=== PATIENT | female | born 1945 | race Caucasian/White ===

== ENCOUNTER → 2018-05-15 | Outpatient (CLI) | payer MEDICARE, BC ==
[~2018-05-15] VITALS: Ht 162.6 cm; Wt 76.7 kg
[~2018-05-15] MED LIST: ASP81TEC PO; CATHETER FLUSH 10 ML SYR IV PRN; CEPH500C PO; CYCL10TA9 PO; EST.625T PO; HYDR1TAB PO; LISI10TA PO; MELO-195 PO; fentaNYL INJECTION 100 MCG/2 ML AMP ONE
[2018-05-15 09:40] VITALS: BP 200/85
--- NOTE | 2018-05-15 15:16 | STRESS TEST ---
DATE OF SERVICE: 05/15/2018 AN EXERCISE MYOVIEW STRESS TEST REPORT REFERRING PHYSICIAN: Dr. Dennis Boyle. Baseline heart rate is 72. Baseline blood pressure is 143/78. Baseline EKG is sinus rhythm with no ischemic changes. SUMMARY: The patient was injected with 9.1 mCi of technetium-99 Myoview and the resting images were obtained. Then, the patient started exercising with a baseline heart rate, blood pressure and EKG mentioned above. The patient was able to exercise for 4 minutes on standard Khurram protocol. With peak exercise level, EKG was showing minimal nondiagnostic changes. During recovery, heart rate and blood pressure returned to baseline. EKG returned to baseline. The resting and stress images were reviewed and compared in the short axis, horizontal long axis and vertical long axis views. Review of the images showed good radiotracer uptake with no significant ischemia or infarction on SPECT images. SSS is 2, SDS 2 and TID value 0.86. On the gated images, the left ventricle appeared to be small in size with good contractility. Calculated ejection fraction is 85%. CONCLUSION: 1. Fair exercise tolerance, a total of 4 minutes on standard Khurram protocol, total of 5.8 METS achieving 93% of maximum expected heart rate. 2. Appropriate heart rate and blood pressure response to exercise returned to baseline during recovery. 3. Minimal nondiagnostic EKG changes with exercise returned to baseline during recovery. 4. No ischemia or infarction on SPECT images. 5. Normal small left ventricular size with normal contractility. Calculated ejection fraction is 85%. Job ID: [id number] DocumentID: [id number] Dictated Date: 05/15/2018 14:48:48 Buffer Operator Date: 05/15/2018 15:15:50 Dictated By: ISAIAH OCAMPO MD
== END ==
LOC: CARD 07:33
PROVIDERS: ATTEND Internal Medicine Cardiovascular Disease
DX: I10 Essential (primary) hypertension (principal); R94.31 Abnormal electrocardiogram [ECG] [EKG]; Z82.49 Family history of ischemic heart disease and other diseases of the circulatory system
CPT/HCPCS: 78452; 93017

== ENCOUNTER → 2019-01-23 | Outpatient (CLI) | payer MEDICARE, BC ==
[~2019-01-23] MED LIST changes: -CATHETER FLUSH 10 ML SYR IV PRN; -fentaNYL INJECTION 100 MCG/2 ML AMP ONE
--- NOTE | 2019-01-23 12:21 | Diagnostic Imaging Report ---
CLINICAL HISTORY: Sharp upper back pain. History of spinal fusion. COMPARISON: None. TECHNIQUE: Three views of the thoracic spine. FINDINGS: No evidence of acute fracture or dislocation is seen in the thoracic spine. Vertebral body heights are well-maintained. No focal osseous lesions. There is anatomic alignment of the thoracic spine. Mild degenerative changes are seen in the thoracic spine with marginal osteophyte formation and facet hypertrophy. Anterior cervical spinal fusion is noted. Included views of the chest demonstrate no focal consolidations. Postcholecystectomy clips are seen in the right upper quadrant. IMPRESSION: No acute fracture or dislocation in the thoracic spine. Dictated by: Dictated on workstation # [id number]
== END ==
LOC: RAD FS 11:59
PROVIDERS: ATTEND Nurse Practitioner Family
DX: M54.6 Pain in thoracic spine (principal); Z98.1 Arthrodesis status
CPT/HCPCS: 72070

== ENCOUNTER → 2019-06-20 | Outpatient (CLI) | payer MEDICARE, BC | LOC: CARD 10:18 | PROVIDERS: ATTEND Physician Assistant | DX: I07.1 Rheumatic tricuspid insufficiency (principal); I10 Essential (primary) hypertension; E78.2 Mixed hyperlipidemia; Z82.49 Family history of ischemic heart disease and other diseases of the circulatory system | CPT/HCPCS: 93306 ==

== ENCOUNTER → 2019-09-08 | Outpatient (CLI) | payer MEDICARE, BC ==
--- NOTE | 2019-09-08 10:02 | Diagnostic Imaging Report ---
EXAMINATION: Cervical spine radiographs, 3 views, 4 images. COMPARISON: None. HISTORY: 74-year-old female, neck pain. No known injury. FINDINGS: There is anterior cervical spine fusion hardware spanning C4-C6. The hardware appears intact. There is severe disc height loss at C6-C7 with osteophyte formation. There is no prominent prevertebral soft tissue swelling. The lateral masses of C1 are normally aligned relative to C2. Additional alignment of the cervical spine is grossly unremarkable. IMPRESSION: 1. Severe disc degenerative changes at C6-C7. 2. Anterior cervical spinal fusion hardware spanning C4-C6. Dictated by: Dictated on workstation # [id number]
== END ==
LOC: RAD FS 09:13
PROVIDERS: ATTEND Nurse Practitioner Family
DX: M50.323 Other cervical disc degeneration at C6-C7 level (principal); Z98.1 Arthrodesis status
CPT/HCPCS: 72040

== ENCOUNTER → 2019-10-14 | Outpatient (CLI) | payer MEDICARE, BC ==
--- NOTE | 2019-10-14 09:26 | Diagnostic Imaging Report ---
PROCEDURE: MR imaging cervical spine without contrast. TECHNIQUE: Multiplanar, multisequence MR imaging of the cervical spine was performed without contrast. INDICATION: Increased neck pain. COMPARISON: Radiographs dated 09/08/2019 FINDINGS: Postsurgical changes of previous anterior fusion of C4-C6 are identified. Evaluation integrity of the hardware is suboptimal given MR modality metallic susceptibility artifact. Evaluation static alignment shows mild grade 1 anterolisthesis at C3-C4. Slight grade 1 retrolisthesis is also noted at C6-C7. There is no evidence of jumped facets. Vertebral body heights are maintained. There is no evidence of acute fracture. Marrow signal is unremarkable. There is multilevel intervertebral disc height loss as well as multilevel anterior posterior disc bulging. This does result in multilevel spinal canal narrowing, greatest at the C3-C4 level. There is however no evidence of cord edema. Cervical cord is normal in course and caliber. No abnormal intrathecal filling defects are identified. Included portions of posterior fossa are unremarkable. Pre and paravertebral soft tissue structures are within normal limits as well. Axial images demonstrate the following: C2-C3: There is bilateral uncovertebral hypertrophy with slight posterior disc bulge. There is however no significant spinal canal or neuroforaminal stenosis. C3-C4: There is bilateral uncal vertebral hypertrophy with broad-based posterior disc bulge and ligamentum flavum laxity. As a result, there is moderate spinal canal stenosis and moderate to severe stenosis of the right neuroforamen. There is also mild narrowing on the left. C4-C5: Postsurgical changes as above. No significant spinal canal or neuroforaminal stenosis. C5-C6: Postsurgical changes as above. No significant spinal canal or neuroforaminal stenosis. C6-C7: There is bilateral uncovertebral hypertrophy and slight broad-based posterior disc bulge. As a result, there is mild narrowing of spinal canal and bilateral neural foramen. C7-T1: There is bilateral facet arthropathy. As a result, there is mild narrowing of the bilateral neural foramen. There is no large disc bulge or focal protrusion. Additionally, there is no significant spinal canal stenosis. IMPRESSION: 1. Multilevel degenerative changes of the cervical spine, greatest at the C2-C3 level. 2. Postsurgical changes of previous anterior fusion of C4-C6. Again, evaluation of the hardware integrity is suboptimal given MR modality metallic susceptibility artifact. Static alignment at the fused levels however is maintained. 3. No acute fracture or dislocation. Dictated by: Dictated on workstation # [id number]
== END ==
LOC: RAD 07:28
PROVIDERS: ATTEND Nurse Practitioner Family
DX: M47.812 Spondylosis without myelopathy or radiculopathy, cervical region (principal); Z98.1 Arthrodesis status
CPT/HCPCS: 72141

== ENCOUNTER → 2020-08-11 | Outpatient (CLI) | payer MEDICARE, BC | LOC: CARD 12:27 | PROVIDERS: ATTEND Internal Medicine Cardiovascular Disease | DX: I10 Essential (primary) hypertension (principal) | CPT/HCPCS: 93306 ==

== ENCOUNTER 2020-08-20 11:54 | Inpatient (IN) | payer MEDICARE, BC ==
[~2020-08-20] VITALS: Ht 162.6 cm; Wt 84.3 kg
[2020-08-20 12:07] LABS: BASOPHILS # (AUTO) 0.1 10^3/uL (0.0-0.1); BASOPHILS % (AUTO) 1 % (0-10); EOSINOPHILS # (AUTO) 0.1 10^3/uL (0.0-0.3); EOSINOPHILS % (AUTO) 2 % (0-10); HEMATOCRIT 42 % (35-52); HEMOGLOBIN 13.9 g/dL (11.5-16.0); LYMPHOCYTES # (AUTO) 1.7 10^3/uL (1.0-4.0); LYMPHOCYTES % (AUTO) 27 % (12-44); MEAN CORPUSCULAR HEMOGLOBIN 30 pg (25-34); MEAN CORPUSCULAR HGB CONC 33 g/dL (32-36); MEAN CORPUSCULAR VOLUME 90 fL (80-99); MEAN PLATELET VOLUME 11.8 fL (9.0-12.2); MONOCYTES # (AUTO) 0.3 10^3/uL (0.0-1.0); MONOCYTES % (AUTO) 5 % (0-12); NEUTROPHILS # (AUTO) 4.3 10^3/uL (1.8-7.8); NEUTROPHILS % (AUTO) 66 % (42-75); PLATELET COUNT 152 10^3/uL (130-400); WHITE BLOOD COUNT 6.5 10^3/uL (4.3-11.0)
--- NOTE | 2020-08-20 12:14 | ED Neurological Problem ---
General Stated Complaint: STROKE Source: patient Exam Limitations: no limitations History of Present Illness Date Seen by Provider: Aug 20, 2020 Time Seen by Provider: 12:00 Initial Comments To ER by EMS with reports of strokelike symptoms. She went to get a pizza and was driving home. Her left hand fell off the steering wheel and has no strength and she has no control over it. This began at 11:30 AM this morning. She is on aspirin only. No history of TIA or stroke. Non-smoker. Does have hypertension. No other symptoms such as vision changes difficulty speaking. No leg troubles. She did receive a Covid injection in the left arm 7 days ago. She has had no troubles until suddenly today at 1130. Timing/Duration: 1/2 hour Severity: moderate Associated Symptoms: paresthesia Allergies and Home Medications Allergies Coded Allergies: No Known Drug Allergies (Unverified , 11/28/10) Home Medications Aspirin 81 Mg Tabec, 81 MG PO DAILY, (Reported) Cyclobenzaprine Hcl 10 Mg Tablet, 1 EACH PO Q8HR PRN, (Reported) Estrogens,Conjugated 0.625 Mg Tablet, 1 TAB PO DAILY, (Reported) Lisinopril 10 Mg Tablet, 1 EACH PO DAILY, (Reported) Meloxicam 15 Mg Tablet, 1 EACH PO DAILY, (Reported) Patient Home Medication List Home Medication List Reviewed: Yes Review of Systems Review of Systems Constitutional: see HPI Eyes: No Symptoms Reported Ears, Nose, Mouth, Throat: no symptoms reported Respiratory: no symptoms reported Cardiovascular: no symptoms reported Genitourinary: no symptoms reported Musculoskeletal: no symptoms reported Skin: no symptoms reported Psychiatric/Neurological: No Symptoms Reported Past Ynmzjce-Vqnueh-Twgnfi Hx Past Medical History Reproductive Disorders: No Physical Exam Vital Signs Vital Signs - First Documented 08/20/20 11:55 Temp 36.7 Pulse 94 Resp 15 B/P (MAP) 170/89 (116) Pulse Ox 96 Capillary Refill : Height, Weight, BMI Height: 5'4.00" Weight: 169lbs. 0.0oz. 76.794401an; 29.0 BMI Method: General Appearance: WD/WN, no apparent distress, other (Alert and oriented GCS 15 talkative very pleasant blood pressure 170/90. ) Respiratory: lungs clear, normal breath sounds, no respiratory distress, no accessory muscle use Cardiovascular: regular rate, rhythm, no murmur Gastrointestinal: normal bowel sounds, non tender, soft Extremities: normal range of motion, non-tender Neurologic/Psychiatric: alert, normal mood/affect, oriented x 3 Crainal Nerves: normal hearing, normal speech, PERRL Coordination/Gait: ABN nose to finger (L) Motor/Sensory: pronator drift (L) Skin: normal color, warm/dry Stroke Onset of Symptoms Date of Onset of Symptoms: Aug 20, 2020 Time of Symptom Onset: 11:30 Onset of Symptoms: Yes Symptoms onset unknown: Yes NIH Stroke Scale Assessment Select: Initial Level of Consciousness: 0=Alert (0), Level of Consciousness- Questions: 0=Answers both month/age (0), LOC Commands: 0=Performs both tasks (0), Gaze: Normal (0), Visual Styles: 0=No visual loss (0), Facial Movement (Facial Paresis): 0=Normal symmetrical mnt (0), Motor Function-Arms Right: 0=No drift (0), Motor Function-Arms Left: 2=Some effort/gravity (2), Motor Function-Legs Right: 0=No drift (0), Motor Function-Legs Left: 0=No drift (0), Limb Ataxia: 0=Absent (0), Sensory: 0=Normal:no loss (0), Best Language: 0=No aphasia (0), Dysarthria: 0=Normal (0), Extinction & Inattention: 0=No abnormality (0), Total: 2 Stroke Thrombolytic Exclusion Age 18 or Over: Yes Acute intenal hemorrhage: No History of CVA: No Uncontrolled Coagulation Defec: No Intracranial Hemorrhage: No Severe Hypertension: No GI or Bleed: No Subarachnoid Hemorrhage: No Intracranial Neoplasm/Aneurysm: No Oral Anticoagulants: No Surgery or Trauma: No Puncture of Non-Compressible V: No Recent CPR: No Diabetic Hemorrhagic Retinopat: No Organ Biopsy: No Recent Obstetric Delivery: No Glucose: No Significant Hepatic Dysfunctio: No NIH Stoke Scale >22: No Bacterial Endocarditis: No Pericarditis: No Improving Symptoms: No Platelets: No TPA Contraindication: No Progress/Results/Core Measures Results/Orders Lab Results Laboratory Tests Test 08/20/20 12:00 08/20/20 12:01 08/20/20 12:30 08/20/20 12:31 Range/Units Glucometer 102 89 70-110 MG/DL White Blood Count 6.5 4.3-11.0 10^3/uL Red Blood Count 4.65 3.80-5.11 10^6/uL Hemoglobin 13.9 11.5-16.0 g/dL Hematocrit 42 35-52 % Mean Corpuscular Volume 90 80-99 fL Mean Corpuscular Hemoglobin 30 25-34 pg Mean Corpuscular Hemoglobin Concent 33 32-36 g/dL Red Cell Distribution Width 13.0 10.0-14.5 % Platelet Count 152 130-400 10^3/uL Mean Platelet Volume 11.8 9.0-12.2 fL Immature Granulocyte % (Auto) 0 % Neutrophils (%) (Auto) 66 42-75 % Lymphocytes (%) (Auto) 27 12-44 % Monocytes (%) (Auto) 5 0-12 % Eosinophils (%) (Auto) 2 0-10 % Basophils (%) (Auto) 1 0-10 % Neutrophils # (Auto) 4.3 1.8-7.8 10^3/uL Lymphocytes # (Auto) 1.7 1.0-4.0 10^3/uL Monocytes # (Auto) 0.3 0.0-1.0 10^3/uL Eosinophils # (Auto) 0.1 0.0-0.3 10^3/uL Basophils # (Auto) 0.1 0.0-0.1 10^3/uL Immature Granulocyte # (Auto) 0.0 0.0-0.1 10^3/uL Sodium Level 140 135-145 MMOL/L Potassium Level 4.6 3.6-5.0 MMOL/L Chloride Level 106 98-107 MMOL/L Carbon Dioxide Level 21 21-32 MMOL/L Anion Gap 13 5-14 MMOL/L Blood Urea Nitrogen 17 7-18 MG/DL Creatinine 1.12 0.60-1.30 MG/DL Estimat Glomerular Filtration Rate 48 BUN/Creatinine Ratio 15 Glucose Level 96 70-105 MG/DL Calcium Level 9.1 8.5-10.1 MG/DL Corrected Calcium 8.9 8.5-10.1 MG/DL Total Bilirubin 0.3 0.1-1.0 MG/DL Aspartate Amino Transf (AST/SGOT) 30 5-34 U/L Alanine Aminotransferase (ALT/SGPT) 18 0-55 U/L Alkaline Phosphatase 85 40-136 U/L Troponin I < 0.028 <0.028 NG/ML Total Protein 7.6 6.4-8.2 GM/DL Albumin 4.3 3.2-4.5 GM/DL Prothrombin Time 13.1 12.2-14.7 SEC INR Comment 1.0 0.8-1.4 Activated Partial Thromboplast Time 27 24-35 SEC D-Dimer 5.10 H 0.00-0.49 UG/ML Test 08/20/20 12:41 Range/Units Urine Color YELLOW Urine Clarity CLEAR Urine pH 6.0 5-9 Urine Specific [place] 1.010 L 1.016-1.022 Urine Protein NEGATIVE NEGATIVE Urine Glucose (UA) NEGATIVE NEGATIVE Urine Ketones NEGATIVE NEGATIVE Urine Nitrite NEGATIVE NEGATIVE Urine Bilirubin NEGATIVE NEGATIVE Urine Urobilinogen 0.2 < = 1.0 MG/DL Urine Leukocyte Esterase 1+ H NEGATIVE Urine RBC (Auto) NEGATIVE NEGATIVE Urine RBC NONE /HPF Urine WBC 5-10 H /HPF Urine Squamous Epithelial Cells 10-25 H /HPF Urine Crystals NONE /LPF Urine Bacteria TRACE /HPF Urine Casts NONE /LPF Urine Mucus NEGATIVE /LPF Urine Culture Indicated YES My Orders Orders - ABAD FLORES HYDROGRAPHER Ct Angio Head/Neck (08/20/20 12:03) Iohexol Injection (Omnipaque 350 Mg/Ml 1 (08/20/20 12:30) Received Contrast (Hold Metformin- Contr (08/20/20 12:30) Sodium Chloride Flush (Catheter Flush Sy (08/20/20 12:30) Ns (Ivpb) (Sodium Chloride 0.9% Ivpb Bag (08/20/20 12:30) Mri Brain W/O Contrast (08/20/20 12:55) Alteplase (Activase) (Activase Injection (08/20/20 13:51) Medications Given in ED Current Medications Medications Dose Ordered Sig/Raheem Route Start Time Stop Time Status Last Admin Dose Admin Iohexol 75 ml ONCE ONCE IV 08/20/20 12:30 08/20/20 12:31 DC 08/20/20 12:18 75 ML Sodium Chloride 10 ml NEEDED PRN IV 08/20/20 12:30 08/20/20 12:18 10 ML Sodium Chloride 100 ml ONCE ONCE IV 08/20/20 12:30 08/20/20 12:31 DC 08/20/20 12:18 80 ML Vital Signs/I&O 08/20/20 11:55 Temp 36.7 Pulse 94 Resp 15 B/P (MAP) 170/89 (116) Pulse Ox 96 Diagnostic Imaging Diagonstic Imaging: CT Comments NAME: ALEJANDRA MOLINA [facility] REC#: [id number] PT STATUS: REG ER : 1945 PHYSICIAN: ABAD FLORES APRN ADMIT DATE: 08/20/20/ER Draft Date of Exam:08/20/20 MRI BRAIN W/O CONTRAST PROCEDURE: MR imaging of the brain without contrast. TECHNIQUE: Multiplanar, multisequence MR imaging of the brain was performed without contrast. INDICATION: Left arm weakness, symptoms began 2 hours ago CORRELATED with CT angiogram head and neck earlier this same date There is a tiny curvilinear focus of abnormal cortical diffusion restriction in the high posterior right frontal lobe along the motor strip. The very small infarct measures 1 cm in maximal dimension. It exerts no mass effect and has no hemorrhagic component. No other foci of abnormal or suspicious diffusion restriction are found. Cerebral cortical volume unremarkable. No findings of elevated intracranial pressures. There is no hydrocephalus. The midline structures nondisplaced. There are no acute or abnormal extra-axial fluid collections. IMPRESSION: Exam confirms an acute to subacute ischemic infarct along the posterior right frontal lobe at the motor strip near the vertex measuring 1 cm maximal with no hemorrhagic component nor mass effect. No other significant finding. Dictated on workstation # [id number] Dict: 08/20/20 1328 Trans: 08/20/20 [address] [facility] [id number] Interpreted by: ELISA MELO Electronically signed by: NAME: ALEJANDRA MOLINA [facility] REC#: [id number] PT STATUS: REG ER : 1945 PHYSICIAN: ABAD FLORES APRN ADMIT DATE: 08/20/20/ER Draft Date of Exam:08/20/20 MRI BRAIN W/O CONTRAST PROCEDURE: MR imaging of the brain without contrast. TECHNIQUE: Multiplanar, multisequence MR imaging of the brain was performed without contrast. INDICATION: Left arm weakness, symptoms began 2 hours ago CORRELATED with CT angiogram head and neck earlier this same date There is a tiny curvilinear focus of abnormal cortical diffusion restriction in the high posterior right frontal lobe along the motor strip. The very small infarct measures 1 cm in maximal dimension. It exerts no mass effect and has no hemorrhagic component. No other foci of abnormal or suspicious diffusion restriction are found. Cerebral cortical volume unremarkable. No findings of elevated intracranial pressures. There is no hydrocephalus. The midline structures nondisplaced. There are no acute or abnormal extra-axial fluid collections. IMPRESSION: Exam confirms an acute to subacute ischemic infarct along the posterior right frontal lobe at the motor strip near the vertex measuring 1 cm maximal with no hemorrhagic component nor mass effect. No other significant finding. Dictated on workstation # [id number] Dict: 08/20/20 1328 Trans: 08/20/20 [address] [facility] [id number] Interpreted by: ELISA MELO Electronically signed by: Departure Communication (Admissions) [id number] discussed the case with Dr. Benson from neurology at . She recommends discussing with the patient what she would like to do. We could give TPA and potentially resolve her symptoms or potentially make them worse. Dr. Solares is here and has seen the patient, we are still well within the window of giving TPA. Were going to go ahead and get a MRI of the brain. She also has a bad cervical spine with previous cervical spine surgery. She tells Dr. Solares that she was actually having some troubles with her neck last night. 1359-MRI confirms stroke. Symptoms remain essentially unchanged with drift and ataxia of the left arm. Discussed with patient whether she could accept this permanently or if she wanted to proceed with TPA administration while accepting the risks of bleeding or transformation of ischemic stroke into hemorrhagic stroke. 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 Though she is right-hand dominant she needs to be able to use her left hand to care for him and would like to proceed with TPA administration accepting of the risks. Impression Primary Impression: Cerebrovascular accident due to cerebral artery occlusion Disposition: ADMITTED INPATIENT Condition: Stable Admissions Decision to Admit Reason: Admit from ER (General) Decision to Admit/Date: Aug 20, 2020 Time/Decision to Admit Time: 13:56 Departure-Patient Inst. Referrals: [facility] (PCP) Primary Care Physician RADHA VAN APRN (Family) Primary Care Physician BAAD FLORES APRN Aug 20, 2020 12:14
[2020-08-20 12:23] LABS: ALBUMIN 4.3 GM/DL (3.2-4.5); CHLORIDE 106 MMOL/L (98-107); SODIUM 140 MMOL/L (135-145)
[2020-08-20 12:24] LABS: CALCIUM 9.1 MG/DL (8.5-10.1)
[2020-08-20 12:25] LABS: GLUCOSE 96 MG/DL (70-105); TOTAL PROTEIN 7.6 GM/DL (6.4-8.2)
[2020-08-20 12:26] LABS: CARBON DIOXIDE 21 MMOL/L (21-32)
[2020-08-20 12:27] LABS: BILIRUBIN,TOTAL 0.3 MG/DL (0.1-1.0); POTASSIUM 4.6 MMOL/L (3.6-5.0)
--- NOTE | 2020-08-20 12:27 | Diagnostic Imaging Report ---
INDICATION: Stroke. Frontal chest obtained at 12:19 p.m. There is no previous study for comparison. Heart and mediastinal silhouette are normal in appearance. The lungs are clear. There is no pneumothorax or pleural fluid. IMPRESSION: Negative chest. Dictated by: Dictated on workstation # [id number]
[2020-08-20 12:29] LABS: ALKALINE PHOSPHATASE 85 U/L (40-136); CREATININE SERUM 1.12 MG/DL (0.60-1.30); GFR ESTIMATED 48
[2020-08-20 12:30] LABS: BUN/CREATININE RATIO 15
[2020-08-20] MEDS ORDERED: NS 100 ML (IVPB) BAG IV ONE (12:30)
[2020-08-20] MEDS ORDERED: CATHETER FLUSH 10 ML SYR IV PRN ×2 (12:30→15:45)
[2020-08-20] MEDS ORDERED: IOHEXOL 350 MG/ML 100 ML (OMNIPAQUE 350) VIAL IV ONE (12:30)
[2020-08-20] MEDS ORDERED: HOLD METFORMIN - RECEIVED CONTRAST 20 ML VIAL IV SCH (12:30)
[2020-08-20 12:32] LABS: ALANINE AMINOTRANSFERASE 18 U/L (0-55)
--- NOTE | 2020-08-20 12:39 | Diagnostic Imaging Report ---
INDICATION: Stroke, left arm weakness. TECHNIQUE: Contiguous noncontrast images were obtained from the skull base through the vertex. After intravenous contrast administration, helical CT angiography of the neck was performed. Source data was reformatted into 3D MIP projections. Delayed post contrast acquisition was also obtained. Auto Exposure Controls were utilized during the CT exam to meet ALARA standards for radiation dose reduction. Precontrast brain CT shows no extra-axial fluid collection. No intracranial hemorrhage. No intracranial mass or mass effect. No midline shift. The ventricles are normal in size and position. There were no focal parenchymal abnormalities in the brain. Calvarial windows are normal. CTA neck findings: The thoracic aortic arch is patent and normal in caliber and appearance. The great vessel origins are patent and without stenosis. The common carotid arteries, carotid bifurcations, internal carotid arteries and external carotids are patent. There is moderate plaquing in the left distal common carotid artery and proximal internal carotid, with around 30% diameter reduction. Both vertebrals are patent and are codominant and without stenosis. There is evidence of previous anterior cervical spine fusion from C4 through C6. There is prominent facet degenerative change throughout the cervical spine. CTA head findings: The distal internal carotid arteries, anterior cerebral arteries, and middle cerebral arteries and their branches appear patent and without stenosis or occlusion. The distal vertebral arteries and basilar artery and posterior cerebral arteries are patent. There is patency of the dural venous sinuses. Delayed images demonstrate no enhancing lesions. IMPRESSION: Noncontrast brain CT was unremarkable. CTA neck showed no evidence of significant carotid stenosis or vertebral stenosis or occlusion. There is mild plaquing in the left distal common carotid artery and internal carotid origin with around 30% diameter reduction. There is extensive degenerative and postoperative change in the cervical spine. CTA head shows no major vessel stenosis or occlusion or aneurysmal disease. There was patency of the dural venous sinuses. Dictated by: Dictated on workstation # [id number]
[2020-08-20 12:48] LABS: BILIRUBIN,URINE NEGATIVE (NEGATIVE); CLARITY,URINE CLEAR; COLOR,URINE YELLOW; GLUCOSE, URINE (UA) NEGATIVE (NEGATIVE); KETONES,URINE NEGATIVE (NEGATIVE); LEUKOCYTE ESTERASE ,URINE 1+ (NEGATIVE); NITRITE,URINE NEGATIVE (NEGATIVE); PROTEIN,URINE NEGATIVE (NEGATIVE)
[2020-08-20 12:55] LABS: BACTERIA,URINE TRACE /HPF
[2020-08-20 13:08] LABS: FIBRIN DEGRADATION PRODUCTS 5.1 UG/ML (0.00-0.49); PROTHROMBIN TIME PATIENT 13.1 SEC (12.2-14.7)
--- NOTE | 2020-08-20 13:46 | Diagnostic Imaging Report ---
PROCEDURE: MR imaging of the brain without contrast. TECHNIQUE: Multiplanar, multisequence MR imaging of the brain was performed without contrast. INDICATION: Left arm weakness, symptoms began 2 hours ago CORRELATED with CT angiogram head and neck earlier this same date There is a tiny curvilinear focus of abnormal cortical diffusion restriction in the high posterior right frontal lobe along the motor strip. The very small infarct measures 1 cm in maximal dimension. It exerts no mass effect and has no hemorrhagic component. No other foci of abnormal or suspicious diffusion restriction are found. Cerebral cortical volume unremarkable. No findings of elevated intracranial pressures. There is no hydrocephalus. The midline structures nondisplaced. There are no acute or abnormal extra-axial fluid collections. IMPRESSION: Exam confirms an acute to subacute ischemic infarct along the posterior right frontal lobe at the motor strip near the vertex measuring 1 cm maximal with no hemorrhagic component nor mass effect. No other significant finding. Dictated by: Dictated on workstation # [id number]
[2020-08-20] MEDS ORDERED: ALTEPLASE 100 MG/VIAL (ACTIVASE) ONE (13:51)
[2020-08-20] MEDS ORDERED: LACTATED RINGERS 1,000 ML IV ONE (15:28)
[2020-08-20] MEDS: LACTATED RINGERS 1,000 ML IV SCH (15:47)
[2020-08-20] MEDS ORDERED: LABETALOL HCL 20 MG/4 ML VIAL IV PRN (16:30)
--- NOTE | 2020-08-20 16:51 | History & Physical-Hospitalist ---
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 No other symptoms. Her strength was 2/[address] scan obtained stat and CVA protocol followed. Conferred with Faheem Wen at the bedside and we decided to confirm suspicion of CVA with stat MRI and if no CVA would perform MRI cervical spine due to neck pain last night and suspicious for herniated disk with impingement left upper extremity. tPA discussed with patient. MRI confirmed CVA right frontal lobe in motor area of left upper extremity. tPA given and patient was m justyna to ICU. Cardiology consulted. Lipid panel ordered along with ECHO. 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 PT OT consulted with IRF. Source: patient, RN/MD Exam Limitations: no limitations Date Seen 08/20/20 Time Seen by a Provider: 13:00 Attending Physician Nivia Lakhani DO [facility] Referring Physician Date of Admission Aug 20, 2020 at 14:06 Home Medications & Allergies Home Medications Reviewed patient Home Medication Reconciliation performed by pharmacy medication reconciliations repair technician and/or nursing. Patients Allergies have been reviewed. Allergies Allergies Coded Allergies No Known Drug Allergies (Unverified11/28/10) Past Rjyafvk-Kodzve-Mzsecv Hx Past Med/Social Hx: Reviewed Nursing Past Med/Soc Hx, Reviewed and Corrections made Patient Social History Marrital Status: Employed/Student: retired Alcohol Use: Denies Use Recreational Drug Use: No Smoking Status: Never a Smoker Recent Foreign Travel: No Contact w/other who traveled: No Recent Hopitalizations: No Recent Infectious Disease Expo: No Immunizations Up To Date Date of Influenza Vaccine: Aug 20, 2020 Seasonal Allergies Seasonal Allergies: No Past Medical History Surgeries: Gallbladder, Hysterectomy, Orthopedic Reproductive: No Sexually Transmitted Disease: No Hysterectomy Musculoskeletal: Degenerate Disk Disease, Chronic Back Pain History of Blood Disorders: No Review of Systems Constitutional: see HPI Psychiatric/Neurological: Weakness (left arm) Physical Exam Physical Exam Vital Signs Vital Signs - First Documented 08/20/20 08/20/20 11:55 15:15 Temp 36.7 Pulse 94 Resp 15 B/P (MAP) 170/89 (116) Pulse Ox 96 O2 Delivery Room Air Capillary Refill : Less Than 3 Seconds Height, Weight, BMI Height: 5'4.00" Weight: 169lbs. 0.0oz. 76.088187aj; 29.69 BMI Method: General Appearance: No Apparent Distress Eyes: Right Eye Normal Inspection, Right Eye PERRL HEENT: PERRL/EOMI, TMs Normal, Normal ENT Inspection, Pharynx Normal, Moist Mucous Membranes Neck: Full Range of Motion, Normal Inspection, Non Tender Respiratory: Chest Non Tender, Lungs Clear, Normal Breath Sounds, No Accessory Muscle Use, No Respiratory Distress Cardiovascular: Regular Rate, Rhythm, No Edema, No Gallop, No JVD, No Murmur, Normal Peripheral Pulses Gastrointestinal: Normal Bowel Sounds, No Organomegaly, No Pulsatile Mass, Non Tender, Soft Back: Normal Inspection, No CVA Tenderness, No Vertebral Tenderness Extremity: Normal Capillary Refill, Normal Inspection, Normal Range of Motion, Non Tender, No Calf Tenderness, No Pedal Edema Neurologic/Psychiatric: Alert, Oriented x3, No Motor/Sensory Deficits, Normal Mood/Affect, Motor Weakness (left arm 3/5 hand 2/5) Skin: Normal Color, Warm/Dry Lymphatic: No Adenopathy Results Results/Procedures Labs Laboratory Tests 08/20/20 12:01 Patient resulted labs reviewed. Assessment/Plan Admission Diagnosis Assessment: Acute CVA with left arm weakness s/p tpa after MRI CVA confirmed within 2.5 hours of symptoms s/p Stroke Center consult ERT DJD Cervical spine s/p surgery Dr Tamar Abebe 2005 Plan: tPA ICU Lipid panel tomorrow PT OT IRF Admission Status: Inpatient Order (span 2 midnights) Reason for Inpatient Admission: CVA acute s/p tpa Diagnosis/Problems Diagnosis/Problems (1) Cerebrovascular accident due to cerebral artery occlusion Status: Acute (2) Received intravenous tissue plasminogen activator (tPA) in emergency department (3) Hx estrogen therapy (4) Cervical spine arthritis Clinical Quality Measures Stroke: Date of last known well: Aug 20, 2020 Time of last known well: 11:30 Symptoms onset unknown: Yes NIVIA LAKHANI DO Aug 20, 2020 16:51
[2020-08-21] MEDS: LACTATED RINGERS 1,000 ML IV SCH ×2 (02:01→12:21)
[2020-08-21 03:48] LABS: BASOPHILS # (AUTO) 0.1 10^3/uL (0.0-0.1); BASOPHILS % (AUTO) 1 % (0-10); EOSINOPHILS # (AUTO) 0.1 10^3/uL (0.0-0.3); EOSINOPHILS % (AUTO) 1 % (0-10); HEMATOCRIT 42 % (35-52); HEMOGLOBIN 13.8 g/dL (11.5-16.0); LYMPHOCYTES # (AUTO) 1.9 10^3/uL (1.0-4.0); LYMPHOCYTES % (AUTO) 21 % (12-44); MEAN CORPUSCULAR HEMOGLOBIN 30 pg (25-34); MEAN CORPUSCULAR HGB CONC 33 g/dL (32-36); MEAN CORPUSCULAR VOLUME 91 fL (80-99); MEAN PLATELET VOLUME 9.4 fL (9.0-12.2); MONOCYTES # (AUTO) 0.4 10^3/uL (0.0-1.0); MONOCYTES % (AUTO) 4 % (0-12); NEUTROPHILS # (AUTO) 6.8 10^3/uL (1.8-7.8); NEUTROPHILS % (AUTO) 73 % (42-75); PLATELET COUNT 222 10^3/uL (130-400); WHITE BLOOD COUNT 9.3 10^3/uL (4.3-11.0)
[2020-08-21 04:03] LABS: CHLORIDE 108 MMOL/L (98-107); POTASSIUM 4.6 MMOL/L (3.6-5.0); SODIUM 140 MMOL/L (135-145)
[2020-08-21 04:06] LABS: GLUCOSE 119 MG/DL (70-105); TRIGLYCERIDES 126 MG/DL (<150); VLDL CHOLESTEROL 25 MG/DL (5-40)
[2020-08-21 04:07] LABS: CARBON DIOXIDE 21 MMOL/L (21-32)
[2020-08-21 04:09] LABS: CREATININE SERUM 0.89 MG/DL (0.60-1.30); GFR ESTIMATED > 60; PHOSPHORUS 3.7 MG/DL (2.3-4.7)
[2020-08-21 04:11] LABS: BUN/CREATININE RATIO 21; CHOLESTEROL 173 MG/DL (< 200)
[2020-08-21 04:12] LABS: HDL CHOLESTEROL 44 MG/DL (40-60); MAGNESIUM 2.1 MG/DL (1.6-2.4)
--- NOTE | 2020-08-21 05:40 | Pulmonary Consultation ---
History of Present Illness History of Present Illness Date Seen by Provider: Aug 21, 2020 Time Seen by Provider: 05:34 Date of Admission Allergies and Home Medications Allergies Coded Allergies: No Known Drug Allergies (Unverified , 11/28/10) Home Medications Aspirin 81 Mg Tabec, 81 MG PO DAILY, (Reported) Cyclobenzaprine Hcl 10 Mg Tablet, 1 EACH PO Q8HR PRN, (Reported) Estrogens,Conjugated 0.625 Mg Tablet, 1 TAB PO DAILY, (Reported) Lisinopril 10 Mg Tablet, 1 EACH PO DAILY, (Reported) Meloxicam 15 Mg Tablet, 1 EACH PO DAILY, (Reported) Past Dondphm-Biimkd-Kdqwei Hx Past Med/Social Hx: Reviewed Nursing Past Med/Soc Hx, Reviewed and Corrections made Patient Social History Alcohol Use: Denies Use Smoking Status: Never a Smoker Recent Infectious Disease Expo: No Recent Hopitalizations: No Have you traveled recently?: No Alcohol Use?: Yes Immunizations Up To Date Date of Influenza Vaccine: Aug 20, 2020 Seasonal Allergies Seasonal Allergies: No Past Medical History Surgeries: Yes (FOOT,NECK) Gallbladder, Hysterectomy, Orthopedic Respiratory: No Cardiac: Yes Neurological: No 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 0.0oz. 76.684621ik; 29.69 BMI Method: Exam Exam Vital Signs Date Time Temp Pulse Resp B/P (MAP) Pulse Ox O2 Delivery O2 Flow Rate FiO2 08/21/20 05:00 78 18 91/57 (68) 94 Room Air 08/21/20 04:00 73 18 117/61 (79) 94 Room Air 08/21/20 03:00 84 16 108/61 (77) 95 Room Air 08/21/20 02:00 84 122/68 (86) 95 Room Air 08/21/20 01:00 86 113/61 (78) 93 Room Air 08/21/20 00:32 86 08/21/20 00:00 85 107/61 (76) 95 Room Air 08/20/20 23:00 85 117/64 (81) 94 Room Air 08/20/20 22:00 98 11 111/55 (73) 97 Room Air 08/20/20 21:00 79 125/61 (82) 93 Room Air 08/20/20 20:00 Room Air 08/20/20 20:00 80 21 121/56 (77) 94 Room Air 08/20/20 19:27 36.6 Room Air 08/20/20 19:00 84 16 121/58 (79) 93 Room Air 08/20/20 19:00 87 08/20/20 18:00 93 13 119/66 (83) 94 Room Air 08/20/20 17:15 85 8 135/79 (94) 96 08/20/20 17:07 98 16 133/80 (99) 98 08/20/20 16:00 85 9 97 08/20/20 16:00 Room Air 08/20/20 15:39 90 08/20/20 15:16 90 18 121/71 97 Room Air 08/20/20 15:15 87 17 150/81 (104) Room Air 08/20/20 11:55 36.7 94 15 170/89 (116) 96 I & O 08/21/20 07:00 Intake Total 150 ml Output Total 200 ml Balance -50 ml Height & Weight Height: 5'4.00" Weight: 169lbs. 0.0oz. 76.841500ua; 29.69 BMI Method: General Appearance: No Apparent Distress HEENT: PERRL/EOMI, TMs Normal, Normal ENT Inspection, Pharynx Normal, Moist Mucous Membranes Neck: Full Range of Motion, Normal Inspection, Non Tender Respiratory: Chest Non Tender, Lungs Clear, Normal Breath Sounds, No Accessory Muscle Use, No Respiratory Distress Cardiovascular: Regular Rate, Rhythm, No Edema, No Gallop, No JVD, No Murmur, Normal Peripheral Pulses Capillary Refill: Less Than 3 Seconds Gastrointestinal: normal bowel sounds, non tender, soft Extremity: Normal Capillary Refill, Normal Inspection, Normal Range of Motion, Non Tender, No Calf Tenderness, No Pedal Edema Neurologic/Psychiatric: Alert, Oriented x3, No Motor/Sensory Deficits, Normal Mood/Affect, Motor Weakness (left arm 3/5 hand 2/5) Skin: Normal Color, Warm/Dry Lymphatic: No Adenopathy Results Lab Laboratory Tests 08/20/20 12:01 08/21/20 03:30 Assessment/Plan Assessment/Plan Acute CVA s/p TPA -- Given at 1400 yesterday -Continue to monitor -Start ASA or Plavix 24hours after TPA -Swallow eval -- No dysphagia per RN Presyncope - -Continue IVF -Continue to monitor -Check EKG and Troponin - generalized weakness worse left sided -PT/OT FRANK LAW DO Aug 21, 2020 05:40
--- NOTE | 2020-08-21 07:33 | Diagnostic Imaging Report ---
PROCEDURE: CT head without contrast. TECHNIQUE: Multiple contiguous axial images were obtained through the brain without the use of intravenous contrast. Auto Exposure Controls were utilized during the CT exam to meet ALARA standards for radiation dose reduction. INDICATION: CVA, post TPA The previous CTA head and neck exam performed at 1206 PM earlier today failed to show any sign of a large vessel occlusion. The subsequent MRI exam did show an area of acute infarction in the right frontal parietal lobe near the vertex of the skull. Reportedly in the interval since the prior exam the patient did undergo TPA. On this study, there is no mass, shift of the midline or hemorrhage noted. The ventricles are not abnormally dilated. The small calcification adjacent to the right frontal horn seen previously is again evident and no different. The bone windows show no sign of a fracture or of a destructive lesion. IMPRESSION: 1. There is no evidence for an acute intracranial abnormality. 2. I agree with the [facility] interpretation of this exam. Dictated by: Dictated on workstation # [id number]
--- NOTE | 2020-08-21 07:56 | Diagnostic Imaging Report ---
Portable erect AP chest at 2:11. Indication: Dyspnea The heart size is within normal limits and stable when compared to 08/20/2020. The lungs remain clear. There is still no sign of failure, pneumonia or pleural effusion. The mediastinum is not widened. The osseous structures are intact. Orthopedic hardware is again seen overlying the lower cervical spine. Impression: Stable chest. There has been no adverse change since the prior exam. Dictated by: Dictated on workstation # [id number]
--- NOTE | 2020-08-21 10:55 | Progress Note - Hospitalist ---
Subjective HPI/CC On Admission Date Seen by Provider: Aug 21, 2020 Time Seen by Provider: 11:00 CC: Left arm weakness HPI: This is a 75yoWF clinic patient of Kerline Billy at [facility] who has a h/o ERT and cervical spine disease s/p surgery 2006 Dr Tamar Abebe who presented to the ER via EMS with abrupt onset of left arm weakness. No other symptoms. Her strength was 2/[address] scan obtained stat and CVA protocol followed. Conferred with Faheem Wen at the bedside and we decided to confirm suspicion of CVA with stat MRI and if no CVA would perform MRI cervical spine due to neck pain last night and suspicious for herniated disk with impingement left upper extremity. tPA discussed with patient. MRI confirmed CVA right frontal lobe in motor area of left upper extremity. tPA given and patient was moved to ICU. Cardiology consulted. Lipid panel ordered along with ECHO. 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 PT OT consulted with IRF. Subjective/Events-last exam Patient doing well Moving to 4th floor after Cardiology evaluate ECHO ordered No source noted for CVA Episode of pre-syncope noted but no changes on Tely at that time and she has these episodes at home Left arm is improved 4/5 and left hand 4/5 but 3-5 fingers 2/5 Review of Systems General: Fatigue, Malaise Neurological: Weakness, Incoordination Objective Exam Vital Signs Vital Signs Date Time Temp Pulse Resp B/P (MAP) Pulse Ox O2 Delivery O2 Flow Rate FiO2 08/22/20 03:50 36.1 73 18 179/81 (113) 95 Room Air Capillary Refill : Less Than 3 Seconds General Appearance: No Apparent Distress, WD/WN, Chronically ill Respiratory: Chest Non Tender, Lungs Clear, Normal Breath Sounds, No Accessory Muscle Use, No Respiratory Distress Cardiovascular: Regular Rate, Rhythm, No Edema, No Gallop, No JVD, No Murmur, Normal Peripheral Pulses Neurologic/Psychiatric: Alert, Oriented x3, No Motor/Sensory Deficits, Normal Mood/Affect, Motor Weakness (left arm 4/5) Results/Procedures Lab Laboratory Tests 08/22/20 05:49 Patient resulted labs reviewed. Assessment/Plan Assessment and Plan Assess & Plan/Chief Complaint Assessment: Acute CVA with left arm weakness s/p tpa after MRI CVA confirmed within 2.5 hours of symptoms s/p Stroke Center consult ERT DJD Cervical spine s/p surgery Dr Tamar Abebe 2005 Plan: tPA ICU Lipid panel tomorrow PT OT IRF 08/21/20: ECHO Move to 4th Cardiology consult appreciated Monitor Tely Diagnosis/Problems Diagnosis/Problems (1) Cerebrovascular accident due to cerebral artery occlusion Status: Acute (2) Received intravenous tissue plasminogen activator (tPA) in emergency department (3) Hx estrogen therapy (4) Cervical spine arthritis Clinical Quality Measures Stroke: Date of last known well: Aug 20, 2020 Time of last known well: 11:30 Symptoms onset unknown: Yes CHRIS LAKHANI DO Aug 21, 2020 10:55
--- NOTE | 2020-08-21 14:27 | Consultation-Cardiology ---
HPI-Cardiology Cardiology Consultation: Date of Consultation 08/21/20 Time Seen by a Provider: 14:00 Date of Admission Attending Physician Nivia Solares DO Admitting Physician [place]/Replaced By [facility] Consulting Physician EDWIGE MOSQUERA MD, MA, FACP, FACC, [facility], CCDS HPI: Chief Complaint: Physician requesting Cardiology consult: Dr Solares Reason for consultation: Hypertension, CVA HPI [address] to [address] Solares's service on 08/20/20 for sudden onset of left- sided weakness that was diagnosed as ischemic stroke in the ER and the pt was treated with thrombolysis. L-sided weakness has improved significantly. She denies cp or palp or syncope or shortness of breath. Has an episode of diaphoresis while sitting on the commode last night. States has had such episodes of diaphoresis and dizziness at home, as well, while straining at stools at home. She does not report swelling or n/v/d Review of Systems-Cardiology Review of Systems Constitutional: No weight loss, No weight gain Eyes: No vision change Ears/Nose/Throat: No ear discharge, No nasal drainage, No recent hearing loss Respiratory: As described under HPI Cardiovascular: As described under HPI Gastrointestinal: As described under HPI Genitourinary: No dysuria, No hematuria, No urine frequency changes Musculoskeletal: back pain (chronic) Skin: No rash, No ulcerations Psychiatric/Neurological: As described under HPI QEY-Gppwfi-Sjjkwr Hx Patient Social History Marrital Status: Employed/Student: retired Smoking Status: Never a Smoker Have you traveled recently?: No Alcohol Use?: Yes Pt feels they are or have been: No Immunizations Up To Date Date of Influenza Vaccine: Aug 20, 2020 Past Medical History PMH As described under Assessment. Family Medical History Family Medical History: She reports fam h/o early CAD (siblings). One brother of a heart attack in his 30s Allergies and Home Medications Allergies Coded Allergies: No Known Drug Allergies (Unverified , 11/28/10) Home Medications Aspirin 81 Mg Tabec, 81 MG PO DAILY, (Reported) Cyclobenzaprine Hcl 10 Mg Tablet, 1 EACH PO Q8HR PRN, (Reported) Estrogens,Conjugated 0.625 Mg Tablet, 1 TAB PO DAILY, (Reported) Lisinopril 10 Mg Tablet, 1 EACH PO DAILY, (Reported) Meloxicam 15 Mg Tablet, 1 EACH PO DAILY, (Reported) Patient Home Medication List Home Medication List Reviewed: Yes Physical Exam-Cardiology Physical Exam Vital Signs/I&O 08/21/20 08/21/20 08/21/20 08/21/20 03:00 04:00 05:00 06:00 Pulse 84 73 78 75 Resp 16 18 18 18 B/P (MAP) 108/61 (77) 117/61 (79) 91/57 (68) 110/63 (79) Pulse Ox 95 94 94 93 O2 Delivery Room Air Room Air Room Air Room Air 08/21/20 08/21/20 08/21/20 08/21/20 07:00 07:00 07:57 08:00 Temp 37.0 Pulse 77 91 77 B/P (MAP) 139/68 (91) 139/66 (90) Pulse Ox 97 95 O2 Delivery Room Air Room Air 08/21/20 08/21/20 08/21/20 08/21/20 08:17 09:00 10:00 11:00 Pulse 87 82 88 B/P (MAP) 126/56 (79) 123/61 (81) 145/68 (93) Pulse Ox 96 95 97 O2 Delivery Room Air Room Air Room Air Room Air 08/21/20 08/21/20 08/21/20 08/21/20 12:00 12:58 13:00 14:00 Pulse 83 84 93 94 Resp 7 7 B/P (MAP) 139/73 (95) 151/74 (99) 143/72 (95) Pulse Ox 92 99 98 O2 Delivery Room Air Room Air Room Air 08/21/20 00:00 Intake Total 150 ml Output Total 200 ml Balance -50 ml Capillary Refill : Less Than 3 Seconds Constitutional: AAO x 3, well-developed, well-nourished HEENT: EOMI, hearing is well preserved; No xanthelasmas are seen Neck: carotid pulses are 2 + bilaterally, with good upstrokes Respiratory: No accessory muscle use; other (good bilateral air entry) Cardiovascular: regular rate-rhythm, S1 and S2, systolic murmur (soft RAMONE at card base) Gastrointestinal: No tender, No guarding, No rebound; audible bowel sounds Extremities: No clubbing, No cyanosis, No significant edema Neurologic/Psychiatric: alert, oriented x 3, other (4/5 power in L upper and lower limbs; 5/5 power on the left) Skin: No rash on exposed areas, No ulcerations on exposed areas Data Review Labs Laboratory Tests 08/20/20 22:10: Glucometer 147H 08/21/20 03:30: White Blood Count 9.3, Red Blood Count 4.66, Hemoglobin 13.8, Hematocrit 42, Mean Corpuscular Volume 91, Mean Corpuscular Hemoglobin 30, Mean Corpuscular Hemoglobin Concent 33, Red Cell Distribution Width 13.2, Platelet Count 222, Mean Platelet Volume 9.4, Immature Granulocyte % (Auto) 0, Neutrophils (%) (Auto) 73, Lymphocytes (%) (Auto) 21, Monocytes (%) (Auto) 4, Eosinophils (%) (Auto) 1, Basophils (%) (Auto) 1, Neutrophils # (Auto) 6.8, Lymphocytes # (Auto) 1.9, Monocytes # (Auto) 0.4, Eosinophils # (Auto) 0.1, Basophils # (Auto) 0.1, Immature Granulocyte # (Auto) 0.0, Sodium Level 140, Potassium Level 4.6, Chloride Level 108H, Carbon Dioxide Level 21, Anion Gap 11, Blood Urea Nitrogen 19H, Creatinine 0.89, Estimat Glomerular Filtration Rate > 60, BUN/Creatinine Ratio 21, Glucose Level 119H, Calcium Level 9.0, Phosphorus Level 3.7, Magnesium Level 2.1, Troponin I < 0.028, Triglycerides Level 126, Cholesterol Level 173, LDL Cholesterol Direct 113, VLDL Cholesterol 25, HDL Cholesterol 44 Microbiology 08/20/20 MRSA Screen - Final, Complete MRSA not isolated Laboratory Tests 08/20/20 12:01 08/21/20 03:30 A/P-Cardiology Assessment/Admission Diagnosis L hemiparesis due to acute ischemic infarct along the posterior right frontal lobe at the motor strip near the vertex (MRI 08/20/20). CVA being managed by Dr Solares Hypertension, controlled Echo 08/20/20: LVEF 60-65%, PASP 40-45 mmHg CTA neck on 08/20/20 showed no evidence of significant carotid stenosis or vertebral stenosis or occlusion Discussion and Recomendations * Management of CVA is by Dr Solares * Continue tele * Consider ILR implant prior to d/c to eval for asymptomatic a fib as the cause of ischemic CVA Clinical Quality Measures Stroke: Date of last known well: Aug 20, 2020 Time of last known well: 11:30 Symptoms onset unknown: Yes EDWIGE MOSQUERA MD FACP FACC [facility]S Aug 21, 2020 14:27
[2020-08-21] MEDS: ASPIRIN 81 MG CHEW (CHILDREN'S ASA) PO SCH (15:18)
--- NOTE | 2020-08-21 16:08 | Physical Therapy Evaluation ---
PT Evaluation-General Medical Diagnosis Admission Date Aug 20, 2020 at 14:06 Medical Diagnosis: Acute CVA Onset Date: Aug 21, 2020 Therapy Diagnosis Therapy Diagnosis: left side weakess Height/Weight Height (Feet): 5 Height (Inches): 4.00 Weight (Pounds): 169 Weight (Ounces): 0.0 Precautions Precautions/Isolations: Standard Precautions Weight Bear Status Right Lower Extremity: Right Full Weight Bearing Left Lower Extremity: Left Full Weight Bearing Referral Physician: Nivia Solares Reason for Referral: Evaluation/Treatment Medical History Additional Medical History cervical Spine surgery 2005 Current History Patient Admitted via ER due to sudden onset of left arm weakness. MRI revealed right frontal lobe CVA. TPA protocol was implemented. Reviewed History: Yes Prior Prior Level of Function SCALE: Activities may be completed with or without assistive devices. 9-Lhjjguqvjy-wbubydx completes the activity by him/herself with no assistance from a helper. 5-Set-up or Clean-up Assistance-helper sets up or cleans up; patient completes activity. [place] assists only prior to or following the activity. 4-Supervision or Touching Assistance-helper provides verbal cues and/or touching/steadying and/or contact guard assistance as patient completes activity. Assistance may be provided throughout the activity or intermittently. 3-Partial/Moderate Assistance-helper does LESS THAN HALF the effort. [place] lif ts, holds or supports trunk or limbs, but provides less than half the effort. 2-Substantial/Maximal Assistance-helper does MORE THAN HALF the effort. [place] lifts or holds trunk or limbs and provides more than half the effort. 0-Gktixdwlo-lnlcao does ALL the effort. Patient does none of the effort to complete the activity. Or, the assistance of 2 or more helpers is required for the patient to complete the activity. If activity was not attempted, code reason: 7-Patient Refused. 9-Not Applicable-not attempted and the patient did not perform the activity before the current illness, exacerbation or injury. 10-Not Attempted due to Environmental Limitations-(lack of equipment, weather restraints, etc.). 88-Not Attempted due to Medical Conditions or Safety Concerns. Bed Mobility: 6 Transfers (B,C,W/C): 6 Gait: 6 Stairs: 6 Indoor Mobility (Ambulation): Independent Stairs: Independent Prior Devices Use: None Pt is active and was fully independent prior to this event. PT Evaluation-Current Subjective Patient reports she's not to get out of bed. Indicates that when she got out of bed earlier in the day she had a syncopal event and was told to stay in bed until further imaging is completed. Pt reports her arm is improving. She now has some use of the shoulder and elbow. Her primary weakness is in her wrist, ring, and pinky fingers. ROM/Strength ROM Upper Extremities right UE WFL, Full passive range in the left but diminished active control of the 3rd through 5th fingers. Strength Lower Extremities Lower extremity strength and coordination is normal both extremities Sensory Vision: Functional Hearing: Functional Transfers Roll Left to Right (QC): 6 Patient was not taken out of bed due to the acute nature of her CVA. Plan to begin ambulation 08/23/20 if vitals are stable. Gait Comments/Gait Description complete gait assessment at next visit Assessment/Needs Limited evaluation this date due to the acute nature of her stroke. She shows good use of LEs with active control and good coordination. Primary deficits are in the (L) UE. OT will consult 08/23/20. Rehab Potential: Good PT Fdc Goals Outpatient Clerk Goals PT Fdc Goals Time Frame: Aug 28, 2020 Roll Left & Right (QC): 6 Sit to Lying (QC): 6 Lying-Sitting on Side/Bed(QC): 6 Sit to Stand (QC): 6 Chair/Jwz-qt-Vipxp Xfer(QC): 6 Toilet Transfer (QC): 6 Car Transfer (QC): 6 Walk 10 feet (QC): 6 Walk 50ft with 2 Turns (QC): 6 Walk 150 ft (QC): 6 Walking 10ft on Uneven Surface: 6 1 Step (curb) (QC): 6 4 Steps (QC): 6 12 Steps (QC): 6 PT Plan Problem List Problem List: Balance, Gait Treatment/Plan Treatment Plan: Continue Plan of Care Treatment Plan: Gait Treatment Duration: Aug 28, 2020 Frequency: 6 times per week Estimated Hrs Per Day: .25 hour per day Discharge Recommendations Therapy Discharge Recommendati: Post Acute OT Target Placement Home with outpatient OT vs possible ARU depending on results of mobility testing. Time/GCodes Time In: 1215 Time Out: 1235 Total Billed Treatment Time: 20 Total Billed Treatment visit, Evaluation moderate Complexity MAREK PATRICK PT Aug 21, 2020 16:08
[2020-08-21] MEDS: hydrALAZINE (APESOLINE) 20 MG/ML VIAL IV PRN (20:25)
[2020-08-21] MEDS ORDERED: meTOprolol SUCCINATE 100 MG (TOPROL XL) TAB PO ONE ×2 (20:54→21:00)
[2020-08-22] MEDS: LACTATED RINGERS 1,000 ML IV SCH ×2 (00:54→07:47)
[2020-08-22 06:03] LABS: BASOPHILS % (AUTO) 1 % (0-10); EOSINOPHILS # (AUTO) 0.2 10^3/uL (0.0-0.3); EOSINOPHILS % (AUTO) 3 % (0-10); HEMATOCRIT 40 % (35-52); HEMOGLOBIN 13.3 g/dL (11.5-16.0); LYMPHOCYTES # (AUTO) 1.7 10^3/uL (1.0-4.0); LYMPHOCYTES % (AUTO) 28 % (12-44); MEAN CORPUSCULAR HEMOGLOBIN 30 pg (25-34); MEAN CORPUSCULAR HGB CONC 33 g/dL (32-36); MEAN CORPUSCULAR VOLUME 90 fL (80-99); MEAN PLATELET VOLUME 9.3 fL (9.0-12.2); MONOCYTES # (AUTO) 0.3 10^3/uL (0.0-1.0); MONOCYTES % (AUTO) 6 % (0-12); NEUTROPHILS # (AUTO) 3.6 10^3/uL (1.8-7.8); NEUTROPHILS % (AUTO) 62 % (42-75); PLATELET COUNT 191 10^3/uL (130-400); WHITE BLOOD COUNT 5.9 10^3/uL (4.3-11.0)
[2020-08-22 06:12] LABS: CHLORIDE 109 MMOL/L (98-107); POTASSIUM 4.3 MMOL/L (3.6-5.0); SODIUM 143 MMOL/L (135-145)
[2020-08-22 06:13] LABS: CALCIUM 8.9 MG/DL (8.5-10.1)
[2020-08-22 06:14] LABS: GLUCOSE 113 MG/DL (70-105)
[2020-08-22 06:16] LABS: CARBON DIOXIDE 24 MMOL/L (21-32)
[2020-08-22 06:18] LABS: CREATININE SERUM 0.83 MG/DL (0.60-1.30); GFR ESTIMATED > 60
[2020-08-22 06:19] LABS: BUN/CREATININE RATIO 18
--- NOTE | 2020-08-22 07:06 | Diagnostic Imaging Report ---
INDICATION: Dyspnea. EXAMINATION: Chest 08/22/2020. COMPARISON: 08/21/2020 single view chest. FINDINGS: The cardiomediastinal silhouette is unremarkable. The pulmonary vasculature is within normal limits. The lungs and pleural spaces are clear. IMPRESSION: No evidence of an acute cardiopulmonary process. Dictated by: Dictated on workstation # [id number]
[2020-08-22] MEDS: meTOprolol SUCCINATE 100 MG (TOPROL XL) TAB PO SCH (08:09)
[2020-08-22] MEDS: ASPIRIN 81 MG CHEW (CHILDREN'S ASA) PO SCH (08:10)
--- NOTE | 2020-08-22 11:20 | Progress Note - Hospitalist ---
Subjective HPI/CC On Admission Date Seen by Provider: Aug 22, 2020 Time Seen by Provider: 11:00 CC: Left arm weakness HPI: This is a 75yoWF clinic patient of Kerline Billy at [facility] who has a h/o ERT and cervical spine disease s/p surgery 2005 Dr Tamar Abebe who presented to the ER via EMS with abrupt onset of left arm weakness. No other symptoms. Her strength was 2/[address] scan obtained stat and CVA protocol followed. Conferred with Faheem Wen at the bedside and we decided to confirm suspicion of CVA with stat MRI and if no CVA would perform MRI cervical spine due to neck pain last night and suspicious for herniated disk with impingement left upper extremity. tPA discussed with patient. MRI confirmed CVA right frontal lobe in motor area of left upper extremity. tPA given and patient was moved to ICU. Cardiology consulted. Lipid panel ordered along with ECHO. 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 PT OT consulted with IRF. Subjective/Events-last exam Patient in bathroom Noted BP Appreciate Dr Holland PT OT maintained Review of Systems General: Fatigue, Malaise Neurological: Weakness Objective Exam Vital Signs Vital Signs Date Time Temp Pulse Resp B/P (MAP) Pulse Ox O2 Delivery O2 Flow Rate FiO2 08/22/20 12:53 70 08/22/20 12:00 36.6 18 172/75 (107) 95 Room Air Capillary Refill : Less Than 3 SecondsLess Than 3 Seconds General Appearance: No Apparent Distress, Other (chart checked only patient in bathroom) Results/Procedures Lab Laboratory Tests 08/22/20 05:49 Patient resulted labs reviewed. Assessment/Plan Assessment and Plan Assess & Plan/Chief Complaint Assessment: Acute CVA with left arm weakness s/p tpa after MRI CVA confirmed within 2.5 hours of symptoms s/p Stroke Center consult ERT DJD Cervical spine s/p surgery Dr Tamar Abebe 2005 Plan: tPA ICU Lipid panel tomorrow PT OT IRF 08/21/20: ECHO Move to 4th Cardiology consult appreciated Monitor Tely 08/22/20: Cardiology appreciated BP control Diagnosis/Problems Diagnosis/Problems (1) Cerebrovascular accident due to cerebral artery occlusion Status: Acute (2) Received intravenous tissue plasminogen activator (tPA) in emergency department (3) Hx estrogen therapy (4) Cervical spine arthritis Clinical Quality Measures Stroke: Date of last known well: Aug 20, 2020 Time of last known well: 11:30 Symptoms onset unknown: Yes CHRIS LAKHANI DO Aug 22, 2020 11:20
--- NOTE | 2020-08-22 12:30 | Progress Note - Cardiology ---
Cardiology SOAP Progress Note Subjective: No cp or palp or syncope Gen malaise as before No shortness of breath at rest Objective: I&O/Vital Signs 08/22/20 08/22/20 08/22/20 08/22/20 01:00 03:50 07:00 08:00 Temp 36.1 Pulse 80 73 68 Resp 18 B/P (MAP) 179/81 (113) Pulse Ox 95 94 O2 Delivery Room Air Room Air 08/22/20 08:00 Temp 36.8 Pulse 71 Resp 18 B/P (MAP) 164/73 (103) Pulse Ox 94 O2 Delivery Room Air 08/22/20 00:00 Intake Total 700 ml Output Total 550 ml Balance 150 ml Weight (Pounds): 169 Weight (Ounces): 0.0 Weight (Calculated Kilograms): 76.730484 Constitutional: AAO x 3, well-developed, well-nourished Respiratory: No accessory muscle use; other (good bilateral air entry) Cardiovascular: regular rate-rhythm, S1 and S2, systolic murmur (soft RAMONE at card base) Gastrointestional: No tender, No guarding, No rebound; audible bowel sounds Extremities: No clubbing, No cyanosis, No significant edema Neurologic/Psychiatric: alert, oriented x 3, other (4/5 power in L upper and lower limbs; 5/5 power on the left) Skin: No rash on exposed areas, No ulcerations on exposed areas Results/Procedures: Labs Laboratory Tests 08/22/20 05:49: White Blood Count 5.9, Red Blood Count 4.47, Hemoglobin 13.3, Hematocrit 40, Mean Corpuscular Volume 90, Mean Corpuscular Hemoglobin 30, Mean Corpuscular Hemoglobin Concent 33, Red Cell Distribution Width 12.8, Platelet Count 191, Mean Platelet Volume 9.3, Immature Granulocyte % (Auto) 0, Neutrophils (%) (Auto) 62, Lymphocytes (%) (Auto) 28, Monocytes (%) (Auto) 6, Eosinophils (%) (Auto) 3, Basophils (%) (Auto) 1, Neutrophils # (Auto) 3.6, Lymphocytes # (Auto) 1.7, Monocytes # (Auto) 0.3, Eosinophils # (Auto) 0.2, Basophils # (Auto) 0.0, Immature Granulocyte # (Auto) 0.0, Sodium Level 143, Potassium Level 4.3, Chloride Level 109H, Carbon Dioxide Level 24, Anion Gap 10, Blood Urea Nitrogen 15, Creatinine 0.83, Estimat Glomerular Filtration Rate > 60, BUN/Creatinine Ratio 18, Glucose Level 113H, Calcium Level 8.9, Phosphorus Level 3.0, Magnesium Level 2.0 Microbiology 08/20/20 MRSA Screen - Final, Complete MRSA not isolated 08/20/20 Urine Culture - Final, Complete Gram Pos Mixed Bacterial Macie A/P: Assessment: L hemiparesis due to acute ischemic infarct along the posterior right frontal lobe at the motor strip near the vertex (MRI 08/20/20). CVA being managed by Dr Solares Hypertension, uncontrolled Echo 08/20/20: LVEF 60-65%, PASP 40-45 mmHg CTA neck on 08/20/20 showed no evidence of significant carotid stenosis or vertebral stenosis or occlusion Plan: * Management of CVA is by Dr Solares * Continue tele * Consider ILR implant prior to d/c to eval for asymptomatic a fib as the cause of ischemic CVA * BP still uncontrolled despite adding Toprol XL 200 mg daily to regimen on 08/21/20 * Add amlodipine Clinical Quality Measures Stroke: Date of last known well: Aug 20, 2020 Time of last known well: 11:30 Symptoms onset unknown: Yes EDWIGE MOSQUERA MD FACP FAC CCDS Aug 22, 2020 12:30
[2020-08-22] MEDS ORDERED: amLODIPine 5 MG (NORVASC) TAB PO NR (12:45)
[2020-08-23] MEDS: hydrALAZINE (APESOLINE) 20 MG/ML VIAL IV PRN (05:13)
[2020-08-23] MEDS ORDERED: ACETAMINOPHEN 500 MG TAB (TYLENOL) ONE (05:16)
[2020-08-23] MEDS ORDERED: ACETAMINOPHEN 500 MG TAB (TYLENOL) PO PRN (05:30)
[2020-08-23 06:13] LABS: BASOPHILS % (AUTO) 0 % (0-10); EOSINOPHILS # (AUTO) 0.2 10^3/uL (0.0-0.3); EOSINOPHILS % (AUTO) 3 % (0-10); HEMATOCRIT 42 % (35-52); HEMOGLOBIN 13.9 g/dL (11.5-16.0); LYMPHOCYTES % (AUTO) 30 % (12-44); MEAN CORPUSCULAR HEMOGLOBIN 30 pg (25-34); MEAN CORPUSCULAR HGB CONC 33 g/dL (32-36); MEAN CORPUSCULAR VOLUME 90 fL (80-99); MEAN PLATELET VOLUME 9.2 fL (9.0-12.2); MONOCYTES # (AUTO) 0.3 10^3/uL (0.0-1.0); MONOCYTES % (AUTO) 5 % (0-12); NEUTROPHILS # (AUTO) 4.1 10^3/uL (1.8-7.8); NEUTROPHILS % (AUTO) 62 % (42-75); PLATELET COUNT 205 10^3/uL (130-400); WHITE BLOOD COUNT 6.7 10^3/uL (4.3-11.0)
[2020-08-23 06:24] LABS: ALBUMIN 3.9 GM/DL (3.2-4.5); POTASSIUM 4.2 MMOL/L (3.6-5.0)
[2020-08-23 06:25] LABS: CALCIUM 9.4 MG/DL (8.5-10.1)
[2020-08-23 06:27] LABS: TOTAL PROTEIN 6.6 GM/DL (6.4-8.2)
[2020-08-23 06:28] LABS: BILIRUBIN,TOTAL 0.3 MG/DL (0.1-1.0)
[2020-08-23 06:30] LABS: CREATININE SERUM 0.97 MG/DL (0.60-1.30)
[2020-08-23] MEDS: meTOprolol SUCCINATE 100 MG (TOPROL XL) TAB PO SCH (08:10)
[2020-08-23] MEDS: ASPIRIN 81 MG CHEW (CHILDREN'S ASA) PO SCH (08:10)
[2020-08-23] MEDS ORDERED: amLODIPine 5 MG (NORVASC) TAB PO SCH (09:00)
--- NOTE | 2020-08-23 09:51 | Progress Note - Cardiology ---
Cardiology SOAP Progress Note Objective: I&O/Vital Signs 08/24/20 08/24/20 08/24/20 00:29 01:00 04:30 Temp 36.5 36.2 Pulse 71 71 62 Resp 18 18 B/P (MAP) 123/58 (79) 139/66 (90) Pulse Ox 97 95 O2 Delivery Room Air Room Air 08/24/20 00:00 Intake Total 1430 ml Balance 1430 ml Weight (Pounds): 169 Weight (Ounces): 0.0 Weight (Calculated Kilograms): 76.505494 Constitutional: AAO x 3, well-developed, well-nourished Respiratory: No accessory muscle use; other (good bilateral air entry) Cardiovascular: regular rate-rhythm, S1 and S2, systolic murmur (soft RAMONE at card base) Gastrointestional: No tender, No guarding, No rebound; audible bowel sounds Extremities: No clubbing, No cyanosis, No significant edema Neurologic/Psychiatric: alert, oriented x 3, other (4/5 power in L upper and lower limbs; 5/5 power on the left) Skin: No rash on exposed areas, No ulcerations on exposed areas Results/Procedures: Labs Laboratory Tests 08/24/20 05:23: White Blood Count 6.8, Red Blood Count 4.64, Hemoglobin 13.7, Hematocrit 42, Mean Corpuscular Volume 89, Mean Corpuscular Hemoglobin 30, Mean Corpuscular Hemoglobin Concent 33, Red Cell Distribution Width 12.8, Platelet Count 206, Mean Platelet Volume 9.0, Immature Granulocyte % (Auto) 1, Neutrophils (%) (Auto) 61, Lymphocytes (%) (Auto) 28, Monocytes (%) (Auto) 6, Eosinophils (%) (Auto) 4, Basophils (%) (Auto) 1, Neutrophils # (Auto) 4.2, Lymphocytes # (Auto) 1.9, Monocytes # (Auto) 0.4, Eosinophils # (Auto) 0.2, Basophils # (Auto) 0.0, Immature Granulocyte # (Auto) 0.0, Sodium Level 143, Potassium Level 4.4, Chloride Level 108H, Carbon Dioxide Level 23, Anion Gap 12, Blood Urea Nitrogen 22H, Creatinine 0.94, Estimat Glomerular Filtration Rate 58, BUN/Creatinine Ratio 23, Glucose Level 112H, Calcium Level 9.2 Microbiology 2/12/21 MRSA Screen - Final, Complete MRSA not isolated 08/20/20 Urine Culture - Final, Complete Gram Pos Mixed Bacterial Macie A/P: Assessment: L hemiparesis due to acute ischemic infarct along the posterior right frontal lobe at the motor strip near the vertex (MRI 08/20/20). CVA being managed by Dr Solares Hypertension, uncontrolled Echo 08/20/20: LVEF 60-65%, PASP 40-45 mmHg CTA neck on 08/20/20 showed no evidence of significant carotid stenosis or vertebral stenosis or occlusion Plan: * Management of CVA is by Dr Solares * Continue tele * Advise ILR implant prior to d/c to eval for asymptomatic a fib as the cause of ischemic CVA - plan for implant tomorrow * BP improved with addition of BB and Norvasc Clinical Quality Measures Stroke: Date of last known well: Aug 20, 2020 Time of last known well: 11:30 Symptoms onset unknown: Yes IRON TERESA Aug 23, 2020 09:51
--- NOTE | 2020-08-23 10:06 | Physical Therapy Daily Note ---
PT Daily Note-Current Subjective Pt presents sitting up in chair eating breakfast upon arrival to room, agreeable to PT treatment at this time. She states that she is up and walking in her room, "just like before." Her biggest complaint is her 3rd, 4th, and 5th finger on the L hand "not working right." She denies any pain. Appearance Following session, pt in recliner chair with call light and tray within reach. All needs met at this time. Mental Status Patient Orientation: Person, Place, Time, Situation Transfers SCALE: Activities may be completed with or without assistive devices. 7-Tkcqllkqao-qxyralq completes the activity by him/herself with no assistance from a helper. 5-Set-up or Clean-up Assistance-helper sets up or cleans up; patient completes activity. [place] assists only prior to or following the activity. 4-Supervision or Touching Assistance-helper provides verbal cues and/or touching/steadying and/or contact guard assistance as patient completes activity. Assistance may be provided throughout the activity or intermittently. 3-Partial/Moderate Assistance-helper does LESS THAN HALF the effort. [place] lifts, holds or supports trunk or limbs, but provides less than half the effort. 2-Substantial/Maximal Assistance-helper does MORE THAN HALF the effort. [place] lifts or holds trunk or limbs and provides more than half the effort. 0-Mmdoeusny-itpgmj does ALL the effort. Patient does none of the effort to complete the activity. Or, the assistance of 2 or more helpers is required for the patient to complete the activity. If activity was not attempted, code reason: 7-Patient Refused. 9-Not Applicable-not attempted and the patient did not perform the activity before the current illness, exacerbation or injury. 10-Not Attempted due to Environmental Limitations-(lack of equipment, weather restraints, etc.). 88-Not Attempted due to Medical Conditions or Safety Concerns. Sit to Stand (QC): 6 Chair/Qbv-cm-Ryiul Xfer(QC): 6 Weight Bearing Right Lower Extremity: Right Full Weight Bearing Left Lower Extremity: Left Full Weight Bearing Gait Training Distance: 300' Walk 150 ft (QC): 6 Pt walked 300' with no AD. Pt with steady gait pattern, and no deondre LOB. Per pt she is ambulating at her PLOF. Balance Picking up an Object (QC): 6 Special Test Comments Pt able to (I) spanish moss picker pen off of the ground with no LOB noted Assessment Current Status: Excellent Progress Pt at baseline with ambulation and functional mobility, no concerns voiced. Pt demonstrated safe mobility, and would be safe to dc home. Will DC PT at this time. PT Lozenge Maker Helper Goals Lozenge Maker Helper Goals PT Prison Goals Time Frame: Aug 28, 2020 Roll Left & Right (QC): 6 Sit to Lying (QC): 6 Lying-Sitting on Side/Bed(QC): 6 Sit to Stand (QC): 6 Chair/Plk-ka-Extrp Xfer(QC): 6 Toilet Transfer (QC): 6 Car Transfer (QC): 6 Walk 10 feet (QC): 6 Walk 50ft with 2 Turns (QC): 6 Walk 150 ft (QC): 6 Walking 10ft on Uneven Surface: 6 1 Step (curb) (QC): 6 4 Steps (QC): 6 12 Steps (QC): 6 PT Plan Problem List Problem List: Activity Tolerance, Functional Strength, Safety, Balance, Gait, Transfer, Bed Mobility, ROM Treatment/Plan Treatment Plan: Discontinue PT, goals met Treatment Plan: Gait Treatment Duration: Aug 28, 2020 Frequency: 6 times per week Estimated Hrs Per Day: .25 hour per day Time/GCodes Time In: 818 Time Out: 830 Total Billed Treatment Time: 12 Total Billed Treatment 1 visit GT (12') LAURIE SMITH PT Aug 23, 2020 10:06
--- NOTE | 2020-08-23 11:28 | Progress Note - Cardiology ---
Cardiology SOAP Progress Note Subjective: Has had some episodes of light-headedness and tiredness No cp or palp or syncope or shortness of breath Some gen malaise L-sided weakness has improved considerably Objective: I&O/Vital Signs 08/23/20 08/23/20 08/23/20 08/23/20 00:00 01:00 05:07 05:32 Temp 36.4 36.2 Pulse 66 61 65 64 Resp 19 20 B/P (MAP) 151/79 (103) 189/78 (115) 134/63 (86) Pulse Ox 97 95 O2 Delivery Room Air Room Air 08/23/20 08/23/20 08/23/20 08/23/20 06:22 06:25 08:00 08:00 Temp 35.3 Pulse 64 67 72 Resp 18 B/P (MAP) 130/62 (84) 132/80 (97) Pulse Ox 96 O2 Delivery Room Air Room Air 08/23/20 00:00 Intake Total 1550 ml Output Total 440 ml Balance 1110 ml Weight (Pounds): 169 Weight (Ounces): 0.0 Weight (Calculated Kilograms): 76.792829 Constitutional: AAO x 3, well-developed, well-nourished Respiratory: No accessory muscle use; other (good bilateral air entry) Cardiovascular: regular rate-rhythm, S1 and S2, systolic murmur (soft RAMONE at card base) Gastrointestional: No tender, No guarding, No rebound; audible bowel sounds Extremities: No clubbing, No cyanosis, No significant edema Neurologic/Psychiatric: alert, oriented x 3, other (4/5 power in L upper and lower limbs; 5/5 power on the left) Skin: No rash on exposed areas, No ulcerations on exposed areas Results/Procedures: Labs Laboratory Tests 08/23/20 05:50: White Blood Count 6.7, Red Blood Count 4.66, Hemoglobin 13.9, Hematocrit 42, Mean Corpuscular Volume 90, Mean Corpuscular Hemoglobin 30, Mean Corpuscular Hemoglobin Concent 33, Red Cell Distribution Width 12.8, Platelet Count 205, Mean Platelet Volume 9.2, Immature Granulocyte % (Auto) 0, Neutrophils (%) (Auto) 62, Lymphocytes (%) (Auto) 30, Monocytes (%) (Auto) 5, Eosinophils (%) (Auto) 3, Basophils (%) (Auto) 0, Neutrophils # (Auto) 4.1, Lymphocytes # (Auto) 2.0, Monocytes # (Auto) 0.3, Eosinophils # (Auto) 0.2, Basophils # (Auto) 0.0, Immature Granulocyte # (Auto) 0.0, Sodium Level 140, Potassium Level 4.2, Chloride Level 106, Carbon Dioxide Level 24, Anion Gap 10, Blood Urea Nitrogen 19H, Creatinine 0.97, Estimat Glomerular Filtration Rate 56, BUN/Creatinine Ratio 20, Glucose Level 112H, Calcium Level 9.4, Corrected Calcium 9.5, Total Bilirubin 0.3, Aspartate Amino Transf (AST/SGOT) 17, Alanine Aminotransferase (ALT/SGPT) 16, Alkaline Phosphatase 77, Total Protein 6.6, Albumin 3.9 Microbiology 08/20/20 MRSA Screen - Final, Complete MRSA not isolated 08/20/20 Urine Culture - Final, Complete Gram Pos Mixed Bacterial Macie Laboratory Tests 08/22/20 05:49 08/23/20 05:50 A/P: Assessment: L hemiparesis due to acute ischemic infarct along the posterior right frontal lobe at the motor strip near the vertex (MRI 08/20/20). CVA being managed by Dr Solares Hypertension, uncontrolled Echo 08/20/20: LVEF 60-65%, PASP 40-45 mmHg CTA neck on 08/20/20 showed no evidence of significant carotid stenosis or vertebral stenosis or occlusion Plan: * Further increase amlodipine because bp still not well controlled * Management of CVA is by Dr Solares * Continue tele * Advise ILR implant prior to d/c to eval for asymptomatic a fib as the cause of ischemic CVA - plan for implant tomorrow Clinical Quality Measures Stroke: Date of last known well: Aug 20, 2020 Time of last known well: 11:30 Symptoms onset unknown: Yes EDWIGE MOSQUERA MD FACP FAC CCDS Aug 23, 2020 11:28
[2020-08-23] MEDS ORDERED: amLODIPine 5 MG (NORVASC) TAB PO NR (11:30)
--- NOTE | 2020-08-23 13:11 | Occupational Therapy Eval ---
OT Evaluation-General/PLF Medical Diagnosis Admission Date Aug 20, 2020 at 14:06 Medical Diagnosis: Acute CVA Onset Date: Aug 21, 2020 Therapy Diagnosis Therapy Diagnosis: Weakness, Left sided weakness Height/Weight Height (Feet): 5 Height (Inches): 4.00 Weight (Pounds): 169 Weight (Ounces): 0.0 Precautions Precautions/Isolations: Fall Prevention, Standard Precautions Weight Bear Status Weight Bearing Restriction: Weight Bearing/Tolerated Referral Physician: Nivia Solares Referral Reason: Activity Tolerance, Self Care, Evaluation/Treatment, Stre ngthening/ROM Medical History Additional Medical History Cervical spine disease, surgery [address] Boyle. Current History Pt. states that she was driving, and began having left sided weakness. She lost almost all function in left arm. She states that it slowly started coming back, even after ER visit with TPA. However, she is still having difficulty with movement of left 4th and 5th finger. Pt. verbalizes that she has been having neck pain for the last 2-3 years, and has experienced some ongoing issues with pain in left elbow and 4th, 5th finger. However, now her weakness has increased. Reviewed History: Yes Social History Home: Single Level Current Living Status: Spouse Entry Into Home: Level Entry ADL-Prior Level of Function SCALE: Activities may be completed with or without assistive devices. 8-Rrgaztecei-lgcxvyk completes the activity by him/herself with no assistance from a helper. 5-Set-up or Clean-up Assistance-helper sets up or cleans up; patient completes activity. [place] assists only prior to or following the activity. 4-Supervision or Touching Assistance-helper provides verbal cues and/or touching/steadying and/or contact guard assistance as patient completes activity. Assistance may be provided throughout the activity or intermittently. 3-Partial/Moderate Assistance-helper does LESS THAN HALF the effort. [place] lifts, holds or supports trunk or limbs, but provides less than half the effort. 2-Substantial/Maximal Assistance-helper does MORE THAN HALF the effort. [place] lifts or holds trunk or limbs and provides more than half the effort. 7-Nefuwavzu-cqblzi does ALL the effort. Patient does none of the effort to complete the activity. Or, the assistance of 2 or more helpers is required for the patient to complete the activity. If activity was not attempted, code reason: 7-Patient Refused. 9-Not Applicable-not attempted and the patient did not perform the activity before the current illness, exacerbation or injury. 10-Not Attempted due to Environmental Limitations-(lack of equipment, weather restraints, etc.). 88-Not Attempted due to Medical Conditions or Safety Concerns. ADL PLOF Comments Pt. verbalizes being independent with daily tasks. She states that her spouse is 81, and does have dementia, but is still doing pretty good. Pt. does all of housework and is able to complete ADL tasks. Self Care: Independent Functional Cognition: Independent Drive Self: Yes OT Current Status Subjective No pain reported. Pt. states that she is having weakness in 4th/5th finger on left hand. Reports difficulty with being able to extend 4th/5th finger actively. Appearance Pt. up in chair. She is dressed. States that she has been up ambulating in room independently, and dressed herself. Mental Status/Objective Patient Orientation: Person, Place, Time, Situation Current Hand Dominance: Right Upper Extremity ROM WFL proximally Pt. unable to fully extend 4th/5th digits on left hand. Pt. able to actively flex/extend all other joints. Upper Extremity Coordination Slightly impaired on left hand. Upper Extremity Strength Bilateral hands tested with dynamometer. Right hand- 60lbs force Left hand- 32, 35, 34lbs force Edema: No edema present ADL-Treatment Eating (QC): 6 (Reported by pt.) Oral Hygiene (QC): 6 Shower/Bathe Self (QC): 6 Upper Body Dressing (QC): 6 Lower Body Dressing (QC): 6 On/Off Footwear (QC): 6 Toileting Hygiene (QC): 6 Other Treatments Pt. reports that she has been up independently in room. She has bathed/dressed self with no difficulty. Pt. reports weakness in 4th/5th digit of left hand. From pt's report, she has been already having some weakness/issues, but this seems to have increased s/p CVA. Pt. reports that she had significant weakness in left UE right after experiencing CVA, but most of these have resolved, and she has full AROM back. Pt. given hand sponge to work on hand strengthening. Pt. also issued handout and educated on ulnar nerve glides. Pt. verbalizes understanding. Pt. is acutely aware of coordination exercises for hand as she went through therapy after having cervical surgery several years ago. She is able to verbalize these exercises, and OT encourages her to do them. Pt. is encouraged to see her spine physician if her weakness persists. Pt. is able to verbalize understanding of all exercises for continued left hand coordination/strength and mobility. All needs met. Education OT Patient Education: Correct positioning, Exercise program, Home exercise program, Progress toward Goal/Update tx plan, Purpose of tx/functional activities, Reviewed precautions, Rehab process, Transfer techniques Teaching Recipient: Patient Teaching Methods: Demonstration, Discussion Response to Teaching: Verbalize Understanding, Return Demonstration OT Senior Care Goals Senior Care Goals Time Frame: Aug 23, 2020 Additional Goals: 1-Demonstrate ADL Tasks, 2-Verbalize Understanding 1=Demonstrate adherence to instructed precautions during ADL tasks. 2=Patient will verbalize/demonstrate understanding of assistive devices/mo difications for ADL. 3=Patient will improve strength/tolerance for activity to enable patient to perform ADL's. Pt. independent with HEP OT Education/Plan Problem List/Assessment Assessment: No Skilled OT Needs ID'd Pt. educated on home program. Pt. educated to consult with physician if symptoms do not improve. Discharge Recommendations Plan/Recommendations: Discontinue OT Therapy Discharge Recommendati: Home & Family Treatment Plan/Plan of Care Treatment,Training & Education: Yes Plan of Care: OTHER Treatment Duration: Aug 23, 2020 Frequency: 1 time per week Estimated Hrs Per Day: .5 hour per day Agreement: Yes Rehab Potential: Good Time/GCodes Start Time: 10:25 Stop Time: 11:00 Total Time Billed (hr/min): 35 Billed Treatment Time 1, EVL x 15minutes, Ex x 20minutes VINNIE MIRANDA OT Aug 23, 2020 13:11
[2020-08-23] MEDS ORDERED: OMEG-160 PO (14:22)
[2020-08-23] MEDS ORDERED: FLAX100031 PO (14:22)
[2020-08-23] MEDS ORDERED: MELO15TA39 PO (14:22)
[2020-08-23] MEDS ORDERED: DOXY100C2 PO (14:22)
[2020-08-23] MEDS ORDERED: LISI20TA26 PO (14:22)
[2020-08-23] MEDS ORDERED: VIT1CAPS44 PO (14:22)
[2020-08-23] MEDS ORDERED: ASPI-1238 PO (14:22)
[2020-08-23] MEDS ORDERED: ESTR0.62 PO (14:22)
[2020-08-23] MEDS ORDERED: CYCL10TA9 PO (14:22)
--- NOTE | 2020-08-23 17:03 | Progress Note ---
Subjective Subjective/Events-last exam Patient doing better this AM. Now only deficit in left ring and pink finger. Tolerating PO diet and ambulation w/o difficultly Review of Systems General: No Chills, No Fatigue Pulmonary: No Dyspnea, No Cough Cardiovascular: No: Chest Pain, Palpitations, Edema Gastrointestinal: No: Nausea, Vomiting, Abdominal Pain, Diarrhea, Constipation Musculoskeletal: neck pain Neurological: Weakness, Numbness Objective Exam Last Set of Vital Signs Vital Signs Date Time Temp Pulse Resp B/P (MAP) Pulse Ox O2 Delivery O2 Flow Rate FiO2 08/23/20 16:00 35.7 66 19 128/61 (83) 96 Room Air Capillary Refill : Less Than 3 SecondsLess Than 3 Seconds I&O Intake and Output 08/23/20 00:00 Intake Total 3650 ml Output Total 440 ml Balance 3210 ml Intake Oral 1650 ml IV Total 2000 ml Output Urine Total 440 ml # Voids 7 # Bowel Movements 1 General: Alert, Oriented X3, Cooperative, No Acute Distress HEENT: Mucous Memb Moist/[place] Lungs: Clear to Auscultation, Normal Air Movement Heart: Regular Rate, No Murmurs Abdomen: Normal Bowel Sounds, Soft, No Tenderness, No Masses Extremities: No Edema, No Tenderness/Swelling Neuro: Other (numbness and decreased motor function in left ring and pinky finger) Psych/Mental Status: Mental Status NL, Mood NL Results/Procedures Lab Laboratory Tests 08/23/20 05:50: White Blood Count 6.7, Red Blood Count 4.66, Hemoglobin 13.9, Hematocrit 42, Mean Corpuscular Volume 90, Mean Corpuscular Hemoglobin 30, Mean Corpuscular Hemoglobin Concent 33, Red Cell Distribution Width 12.8, Platelet Count 205, Mean Platelet Volume 9.2, Immature Granulocyte % (Auto) 0, Neutrophils (%) (Auto) 62, Lymphocytes (%) (Auto) 30, Monocytes (%) (Auto) 5, Eosinophils (%) (Auto) 3, Basophils (%) (Auto) 0, Neutrophils # (Auto) 4.1, Lymphocytes # (Auto) 2.0, Monocytes # (Auto) 0.3, Eosinophils # (Auto) 0.2, Basophils # (Auto) 0.0, Immature Granulocyte # (Auto) 0.0, Sodium Level 140, Potassium Level 4.2, Chloride Level 106, Carbon Dioxide Level 24, Anion Gap 10, Blood Urea Nitrogen 19H, Creatinine 0.97, Estimat Glomerular Filtration Rate 56, BUN/Creatinine Ratio 20, Glucose Level 112H, Calcium Level 9.4, Corrected Calcium 9.5, Total Bilirubin 0.3, Aspartate Amino Transf (AST/SGOT) 17, Alanine Aminotransferase (ALT/SGPT) 16, Alkaline Phosphatase 77, Total Protein 6.6, Albumin 3.9 Microbiology 08/20/20 MRSA Screen - Final, Complete MRSA not isolated 08/20/20 Urine Culture - Final, Complete Gram Pos Mixed Bacterial Macie Assessment/Plan Assessment/Plan (1) Cerebrovascular accident due to cerebral artery occlusion Status: Acute Assessment & Plan: 08/23: IRF consult placed, bedside swallow normal, blood pressure controlled, recieved TPA, start crestor, states that she had SE with lipitor (2) Cervical spine arthritis Status: Chronic (3) Hx estrogen therapy Assessment & Plan: 08/23: Discussed the importance of stopping all estrogen therapy (4) Received intravenous tissue plasminogen activator (tPA) in emergency department (5) HTN (hypertension) Status: Chronic Assessment & Plan: 08/23: Continue home meds Qualifiers: Qualified Codes: I10 - Essential (primary) hypertension (6) DVT prophylaxis Status: Acute Assessment & Plan: SCDs only due to TPA Clinical Quality Measures Stroke: Date of last known well: Aug 20, 2020 Time of last known well: 11:30 Symptoms onset unknown: Yes NATE SANTOS MD Aug 23, 2020 17:03
[2020-08-24 05:44] LABS: BASOPHILS % (AUTO) 1 % (0-10); EOSINOPHILS # (AUTO) 0.2 10^3/uL (0.0-0.3); EOSINOPHILS % (AUTO) 4 % (0-10); HEMATOCRIT 42 % (35-52); HEMOGLOBIN 13.7 g/dL (11.5-16.0); LYMPHOCYTES # (AUTO) 1.9 10^3/uL (1.0-4.0); LYMPHOCYTES % (AUTO) 28 % (12-44); MEAN CORPUSCULAR HEMOGLOBIN 30 pg (25-34); MEAN CORPUSCULAR HGB CONC 33 g/dL (32-36); MEAN CORPUSCULAR VOLUME 89 fL (80-99); MONOCYTES # (AUTO) 0.4 10^3/uL (0.0-1.0); MONOCYTES % (AUTO) 6 % (0-12); NEUTROPHILS # (AUTO) 4.2 10^3/uL (1.8-7.8); NEUTROPHILS % (AUTO) 61 % (42-75); PLATELET COUNT 206 10^3/uL (130-400); WHITE BLOOD COUNT 6.8 10^3/uL (4.3-11.0)
[2020-08-24 06:06] LABS: POTASSIUM 4.4 MMOL/L (3.6-5.0)
[2020-08-24 06:07] LABS: CALCIUM 9.2 MG/DL (8.5-10.1)
[2020-08-24 06:11] LABS: CREATININE SERUM 0.94 MG/DL (0.60-1.30)
[2020-08-24] MEDS: ASPIRIN 81 MG CHEW (CHILDREN'S ASA) PO SCH (08:38)
[2020-08-24] MEDS: meTOprolol SUCCINATE 100 MG (TOPROL XL) TAB PO SCH (08:38)
[2020-08-24] MEDS ORDERED: amLODIPine 10 MG (NORVASC) TAB PO SCH (09:00)
[2020-08-24] MEDS ORDERED: LIDOCAINE 1% INJ 20 ML 20 ML VIAL ONE (09:11)
--- NOTE | 2020-08-24 11:13 | Progress Note - Cardiology ---
Cardiology SOAP Progress Note Subjective: No new symptoms Focal weakness has improved significantly compare to time of admission Gen weakness, intermittent, as before No cp or palp or syncope or shortness of breath No n/v/d Objective: I&O/Vital Signs 08/24/20 08/24/20 08/24/20 08/24/20 00:29 01:00 04:30 06:38 Temp 36.5 36.2 Pulse 71 71 62 64 Resp 18 18 B/P (MAP) 123/58 (79) 139/66 (90) Pulse Ox 97 95 O2 Delivery Room Air Room Air 08/24/20 08/24/20 08/24/20 08:00 08:22 10:59 Temp 35.9 36.5 Pulse 63 62 Resp 17 18 B/P (MAP) 124/60 (81) 142/63 (89) Pulse Ox 96 96 97 O2 Delivery Room Air Room Air Room Air 08/24/20 00:00 Intake Total 1430 ml Balance 1430 ml Weight (Pounds): 169 Weight (Ounces): 0.0 Weight (Calculated Kilograms): [id number] Constitutional: AAO x 3, well-developed, well-nourished Respiratory: No accessory muscle use; other (good bilateral air entry) Cardiovascular: regular rate-rhythm, S1 and S2, systolic murmur (soft RAMONE at card base) Gastrointestional: No tender, No guarding, No rebound; audible bowel sounds Extremities: No clubbing, No cyanosis, No significant edema Neurologic/Psychiatric: alert, oriented x 3, other (4/5 power in L upper and lower limbs; 5/5 power on the left) Skin: No rash on exposed areas, No ulcerations on exposed areas Results/Procedures: Labs Laboratory Tests 08/24/20 05:23: White Blood Count 6.8, Red Blood Count 4.64, Hemoglobin 13.7, Hematocrit 42, Mean Corpuscular Volume 89, Mean Corpuscular Hemoglobin 30, Mean Corpuscular Hemoglobin Concent 33, Red Cell Distribution Width 12.8, Platelet Count 206, Mean Platelet Volume 9.0, Immature Granulocyte % (Auto) 1, Neutrophils (%) (Auto) 61, Lymphocytes (%) (Auto) 28, Monocytes (%) (Auto) 6, Eosinophils (%) (Auto) 4, Basophils (%) (Auto) 1, Neutrophils # (Auto) 4.2, Lymphocytes # (Auto) 1.9, Monocytes # (Auto) 0.4, Eosinophils # (Auto) 0.2, Basophils # (Auto) 0.0, Immature Granulocyte # (Auto) 0.0, Sodium Level 143, Potassium Level 4.4, Chloride Level 108H, Carbon Dioxide Level 23, Anion Gap 12, Blood Urea Nitrogen 22H, Creatinine 0.94, Estimat Glomerular Filtration Rate 58, BUN/Creatinine Ratio 23, Glucose Level 112H, Calcium Level 9.2 08/24/20 07:55: Microbiology 08/20/20 MRSA Screen - Final, Complete MRSA not isolated 08/20/20 Urine Culture - Final, Complete Gram Pos Mixed Bacterial Macie A/P: Assessment: L hemiparesis due to acute ischemic infarct along the posterior right frontal lobe at the motor strip near the vertex (MRI 08/20/20). CVA being managed by Dr Solares - s/p ILR implantation on 08/24/20 Hypertension Echo 08/20/20: LVEF 60-65%, PASP 40-45 mmHg CTA neck on 08/20/20 showed no evidence of significant carotid stenosis or vertebral stenosis or occlusion Plan: * ILR implanted * Continue antihypertensive regimen * Management of CVA is by Dr Solares Clinical Quality Measures Stroke: Date of last known well: Aug 20, 2020 Time of last known well: 11:30 Symptoms onset unknown: Yes EDWIGE MOSQUERA MD FACP FAC CCDS Aug 24, 2020 11:13
--- NOTE | 2020-08-24 11:51 | Discharge Summary ---
Diagnosis/Chief Complaint Date of Admission Aug 20, 2020 at 14:06 Date of Discharge Discharge Diagnosis Problems/Diagnosis: (1) Cerebrovascular accident due to cerebral artery occlusion Assessment & Plan: 08/23: IRF consult placed, bedside swallow normal, blood pressure controlled, recieved TPA, start crestor, states that she had SE with lipitor Status: Acute (2) Cervical spine arthritis Status: Chronic (3) Hx estrogen therapy Assessment & Plan: 08/23: Discussed the importance of stopping all estrogen therapy (4) Received intravenous tissue plasminogen activator (tPA) in emergency department (5) HTN (hypertension) Assessment & Plan: 08/23: Continue home meds Qualifiers: Qualified Codes: I10 - Essential (primary) hypertension Status: Chronic (6) DVT prophylaxis Assessment & Plan: SCDs only due to TPA Status: Acute Discharge Summary-Simple/Stand Consultations Discharge Physical Examination Allergies: Coded Allergies: No Known Drug Allergies (Unverified , 11/28/10) Vitals & I&Os Vital Sign - Last 12Hours Date Time Temp Pulse Resp B/P (MAP) Pulse Ox O2 Delivery O2 Flow Rate FiO2 08/24/20 10:59 36.5 62 18 142/63 (89) 97 Room Air Intake and Output 08/24/20 00:00 Intake Total 1430 ml Balance 1430 ml Hospital Course See final discharge diagnosis. Discharge Instructions to patient/family Please see electronic discharge instructions given to patient. Discharge Medications Reviewed and agree with Discharge Medication list on patient's Discharge Ins truction sheet Clinical Quality Measures Stroke: Date of last known well: Aug 20, 2020 Time of last known well: 11:30 Symptoms onset unknown: Yes NATE SANTOS MD Aug 24, 2020 11:51
[2020-08-24] MEDS ORDERED: ROSU10TA22 PO (11:55)
[2020-08-24] MEDS ORDERED: AMLO-251 PO (11:55)
[2020-08-24] MEDS ORDERED: MTP100TCR PO (11:55)
--- NOTE | 2020-08-24 11:57 | Discharge Summary ---
Discharge [facility] Reconcile Patient Problems Problems Reviewed?: Yes Discharge Medications New, Converted or Re-Newed RX: Transmitted to Pharmacy New Medications: Rosuvastatin Calcium (Crestor) 10 Mg Tablet 10 MG PO DAILY, #30 TAB Amlodipine Besylate (Amlodipine Besylate) 10 Mg Tablet 10 MG PO DAILY, #30 TAB Metoprolol Succinate (Metoprolol Succinate) 100 Mg Tab.er.24h 200 MG PO DAILY, #30 TAB Continued Medications: Aspirin (Aspirin EC) 81 Mg Tablet.dr 81 MG PO Q48H, TAB Flaxseed Oil (Flax Seed Oil) 1,000 Mg Capsule 1000 MG PO DAILY, CAP Lisinopril (Lisinopril) 20 Mg Tablet 10 MG PO DAILY, TAB TAKES OF A 20MG TAB [place]-3/Dha/Epa/Fish Oil (Fish Oil 1,000 mg Softgel) 1 Each Capsule 1 EACH PO DAILY, CAP Vit C/E/Zn/Coppr/Lutein/Zeaxan (Preservision Areds 2 Softgel) 1 Each Capsule 1 EACH PO DAILY, CAP Discontinued Medications: Cyclobenzaprine HCl (Cyclobenzaprine HCl) 10 Mg Tablet 10 MG PO TID PRN for MUSCLE SPASMS, TAB Doxycycline Hyclate (Doxycycline Hyclate) 100 Mg Capsule 100 MG PO DAILY, CAP Estrogens, Conjugated (Premarin) 0.625 Mg Tablet 0.625 MG PO Q48H, TAB Meloxicam (Meloxicam) 15 Mg Tablet 15 MG PO DAILY, TAB Patient Instructions Goal/Follow Up Appt: F/u Dr Holland on Sunday for dressing change F.u with PCP next week Activity & Diet Discharge Diet: Cardiac Diet Activity as Tolerated: Yes NATE SANTOS MD Aug 24, 2020 11:57
[2020-08-24 13:30] VITALS: BP 142/63
--- NOTE | 2020-08-24 15:17 | OPERATIVE REPORT ---
DATE OF SERVICE: 08/24/2020 PRIMARY PHYSICIAN: Dr. Solares. CLINICAL DIAGNOSIS: Cryptogenic stroke. INDICATIONS: The patient is a 75-year-old lady who has had a stroke and the etiology is undetermined. Atrial fibrillation is a possibility. Implantable loop recorder implantation was carried out after having obtained an informed consent. DESCRIPTION OF PROCEDURE: [facility] fasting [facility]. The left prepectoral area was prepared and draped in the usual sterile fashion. Lidocaine 1% was used for local anesthesia. The tools provided with the [employer] Reveal LINQ device were used to make a pocket anterior to the fourth intercostal space on the left side. The device was placed in the pocket and the skin edges were closed using Dermabond and Steri-Strips. The serial number of the device is [id number]. The patient tolerated the procedure well. Job ID: [id number] DocumentID: [id number] Dictated Date: 08/24/2020 10:35:12 [place] Machine Operator Date: 08/24/2020 15:16:27 Dictated By: EDWIGE MOSQUERA MD, MA, FACP, FACC,
== END 2020-08-24 13:30 | disposition home or self-care (01) | DRG 41 ==
LOC: EDUNIT# 11:54 → ER 11:55 → ICU 14:06 → 4TH 08-21 16:19
PROVIDERS: ADMIT Internal Medicine; ATTEND Family Medicine
PROC: 3E03317 Introduction of Other Thrombolytic into Peripheral Vein, Percutaneous Approach (ICD-10-PCS; principal; 2020-08-20)
PROC: 0JH632Z Insertion of Monitoring Device into Chest Subcutaneous Tissue and Fascia, Percutaneous Approach (ICD-10-PCS; 2020-08-24)
DX: I63.50 Cerebral infarction due to unspecified occlusion or stenosis of unspecified cerebral artery (principal); G81.94 Hemiplegia, unspecified affecting left nondominant side; M47.812 Spondylosis without myelopathy or radiculopathy, cervical region; R29.702 NIHSS score 2; I10 Essential (primary) hypertension; R55 Syncope and collapse; Z79.890 Hormone replacement therapy; Z79.82 Long term (current) use of aspirin; Z20.822 Contact with and (suspected) exposure to COVID-19
CPT/HCPCS: 33285; 36415; 70450; 70496; 70498; 70551; 71045; 80048; 80053; 80061; 81000; 82962; 83735; 84100; 84484; 85025; 85379; 85610; 85730; 87081; 87088; 87635; 93005; 93041; 93306

== ENCOUNTER → 2021-01-19 | Outpatient (CLI) | payer MEDICARE, BC ==
[~2021-01-19] VITALS: Ht 162 cm; Wt 80.0 kg
[~2021-01-19] MED LIST changes: +AMLO-251 PO; +ASPI-1238 PO; +CATHETER FLUSH 10 ML SYR IV PRN; +DOXY100C2 PO; +ESTR0.62 PO; +FLAX100031 PO; +LISI20TA26 PO; +MELO15TA39 PO; +MTP100TCR PO; +OMEG-160 PO; +ROSU10TA22 PO; +VIT1CAPS44 PO
[2021-01-19 08:54] VITALS: BP 163/57
--- NOTE | 2021-01-19 13:05 | Cardiology Stress Test Report ---
Stress Test Report Date of Procedure/Referring: Date of Procedure: Jan 19, 2021 Suzanne Polk Admitting Physician [facility] Indications: HTN Baseline Heart Rate: 71 Baseline Blood Pressure: Blood Pressure Systolic: 163 Blood Pressure Diastolic: 57 Vital Signs Date Time Temp Pulse Resp B/P (MAP) Pulse Ox O2 Delivery O2 Flow Rate FiO2 01/19/21 08:54 90 16 163/57 (92) 97 Room Air Baseline Vital Signs Vital Signs Date Time Temp Pulse Resp B/P (MAP) Pulse Ox O2 Delivery O2 Flow Rate FiO2 01/19/21 08:54 90 16 163/57 (92) 97 Room Air Baseline EKG: Baseline EKG: NSR Summary: After explaining the procedure and details to the patient, she signed the consent and was brought to the stress nuclear laboratory. Patient exercised on standard Khurram protocol, EKG, heart rate and blood pressure were monitored continuously, resting and stress doses of radio tracer were injected, imaging was acquired and reviewed in the short axis, horizontal long axis and vertical long axis views Patient was able to exercise for a total of 5 minutes on Khurram protocol, METs 7 Maximum heart rate 130 Maximum blood pressure 228/59 Stress EKG, Minimal nondiagnostic changes Recovery EKG, Return to baseline TID: 0.99 SSS: 6 SDS: 6 EF: 83 Conclusion: 1. Good exercise tolerance for a total of 5 minutes on standard Khurram protocol total of seven METS achieving 88% of maximal expected heart rate 2. Severe hypertensive response to exercise with peak blood pressure 228/59 return to baseline during recovery 3. Minimal nondiagnostic EKG changes with exercise return to baseline during recovery 4. Breast attenuation, there is mild decreased uptake at the base of the anterior wall and anteroseptum with no significant ischemia or infarction 5. Normal left ventricular size, EF 83% ISAIAH OCAMPO MD Jan 19, 2021 13:05
== END ==
LOC: CARD 07:45
PROVIDERS: ATTEND Physician Assistant
DX: I10 Essential (primary) hypertension (principal)
CPT/HCPCS: 78452; 93017; A9502

== ENCOUNTER → 2021-02-07 | Outpatient (CLI) | payer MEDICARE, BC ==
[~2021-02-07] MED LIST changes: -CATHETER FLUSH 10 ML SYR IV PRN
--- NOTE | 2021-02-07 14:10 | Diagnostic Imaging Report ---
PROCEDURE: MR imaging cervical spine without contrast. TECHNIQUE: Multiplanar, multisequence MR imaging of the cervical spine was performed without contrast. INDICATION: Neck pain. FINDINGS: The alignment of the cervical spine is normal. The vertebral body heights are well-maintained. There are post surgical changes of an anterior cervical fusion from C4 through C6. The prevertebral soft tissues are within normal limits. The posterior fossa is unremarkable. The visualized portions of the spinal cord are normal in signal intensity and morphology. At C2-3, there is no spinal or neuroforaminal encroachment. At C3-4, there is annular bulging and bilateral uncovertebral joint hypertrophy. There is moderate spinal stenosis and at least moderate bilateral neuroforaminal encroachment, right greater than left. At C4-5, there is right uncovertebral joint hypertrophy and mild to moderate right neuroforaminal encroachment. At C5-6, there is bilateral uncovertebral joint hypertrophy with moderate bilateral neuroforaminal encroachment. At C6-7, there is annular bulging and bilateral uncovertebral joint hypertrophy. There is moderately severe spinal stenosis. There is moderate left and mild right neuroforaminal encroachment. At C7-T1, there is mild annular bulging with slight effacement of the ventral thecal sac. IMPRESSION: Diffuse cervical spondylosis and degenerative disc disease as described. Stable post surgical changes of an anterior cervical disc fusion from C4 through C6. Dictated by: Dictated on workstation # [id number]
== END ==
LOC: RAD 09:30
PROVIDERS: ATTEND Neurological Surgery
DX: M47.812 Spondylosis without myelopathy or radiculopathy, cervical region (principal); M48.02 Spinal stenosis, cervical region; M51.24 Other intervertebral disc displacement, thoracic region; M50.21 Other cervical disc displacement, high cervical region; M50.31 Other cervical disc degeneration, high cervical region; Z98.890 Other specified postprocedural states; Z98.1 Arthrodesis status
CPT/HCPCS: 72141

== ENCOUNTER → 2021-05-03 | Outpatient (CLI) | payer MEDICARE, BC ==
[~2021-05-03] MED LIST changes: -DOXY100C2 PO; +DOXY100C5 PO
--- NOTE | 2021-05-03 11:10 | Diagnostic Imaging Report ---
INDICATION: Left heel pain AP, oblique, lateral views of the left foot are obtained. There is no acute fracture or acute bony abnormality. There is mild plantar calcaneal spurring. There is no destructive bony lesion. There are previous fixation screws of postop changes in the distal aspect of the 1st and 2nd metatarsals. IMPRESSION: Mild calcaneal spurring. No acute fracture or erosive bony lesion. Postop changes and 1st and 2nd metatarsals without acute feature. Dictated by: Dictated on workstation # [id number]
== END ==
LOC: RAD FS 10:19
PROVIDERS: ATTEND Nurse Practitioner Family
DX: M77.32 Calcaneal spur, left foot (principal); Z98.890 Other specified postprocedural states
CPT/HCPCS: 73630

== ENCOUNTER → 2022-01-02 | Outpatient (CLI) | payer MEDICARE, BC ==
[~2022-01-02] MED LIST changes: +CYCL10TA25 PO; +GADOTERATE 0.5 MMOL/ML (CLARISCAN) 20 ML VIAL IV ONE; +NF-CRES10T PO; -ROSU10TA22 PO
--- NOTE | 2022-01-02 14:47 | Diagnostic Imaging Report ---
PROCEDURE: MR imaging of the brain with and without contrast. TECHNIQUE: Multiplanar, multisequence MR imaging of the brain was performed with and without contrast. INDICATION: Stroke. Frequent headaches. COMPARISON: CT head without contrast and MRI brain without contrast 08/20/2020. FINDINGS: Moderate generalized parenchymal volume loss. Mild to moderate nonspecific T2 hyperintensities in the supratentorial and pontine white matter compatible with chronic small vessel ischemic change. Tiny region of encephalomalacia in the right precentral gyrus corresponding to the previously seen infarct. No abnormal intracranial enhancement. No restricted water diffusion. No hemosiderin deposition or evidence of intracranial hemorrhage. Normal morphology including the major midline structures, sella, posterior fossa and cerebellar pontine angle. Normal intracranial flow voids. No hydrocephalus or extra-axial fluid collections. Paranasal sinuses and mastoids are unremarkable. The orbits are negative. Normal bone marrow signal. IMPRESSION: 1. No acute intracranial MRI findings. No evidence of acute infarction or hemorrhage. 2. Small chronic infarct in the right precentral gyrus. 3. Age-appropriate parenchymal volume loss and chronic small vessel ischemic change. Dictated by: Dictated on workstation # [id number]
== END ==
LOC: RAD 12:39
PROVIDERS: ATTEND Nurse Practitioner Family
DX: G31.1 Senile degeneration of brain, not elsewhere classified (principal); I67.82 Cerebral ischemia; Z86.73 Personal history of transient ischemic attack (TIA), and cerebral infarction without residual deficits
CPT/HCPCS: 70553

== ENCOUNTER → 2022-04-19 | Outpatient (CLI) | payer MEDICARE, BC ==
[~2022-04-19] VITALS: Ht 162 cm; Wt 84.0 kg
[~2022-04-19] MED LIST changes: +CATHETER FLUSH 10 ML SYR IVP PRN; -GADOTERATE 0.5 MMOL/ML (CLARISCAN) 20 ML VIAL IV ONE
[2022-04-19 13:21] VITALS: BP 153/71
--- NOTE | 2022-04-19 15:12 | Cardiology Stress Test Report ---
Stress Test Report Date of Procedure/Referring: Date of Procedure: Apr 19, 2022 [facility] Admitting Physician Admitting Physician: Attending Physician: Suzanne Baker Indications: HTN Baseline Heart Rate: 67 Baseline Blood Pressure: Blood Pressure Systolic: 153 Blood Pressure Diastolic: 71 Vital Signs Date Time Temp Pulse Resp B/P (MAP) Pulse Ox O2 Delivery O2 Flow Rate FiO2 04/19/22 13:21 67 153/71 (98) 97 Baseline Vital Signs Vital Signs Date Time Temp Pulse Resp B/P (MAP) Pulse Ox O2 Delivery O2 Flow Rate FiO2 04/19/22 13:21 67 153/71 (98) 97 Baseline EKG: Baseline EKG: NSR Summary: After explaining the procedure and details to the patient, she signed the consent and was brought to the stress nuclear laboratory. Patient exercised on standard Khurram protocol, EKG, heart rate and blood pressure were monitored continuously, resting and stress doses of radio tracer were injected, imaging was acquired and reviewed in the short axis, horizontal long axis and vertical long axis views Patient was able to exercise for a total of 4 minutes on Khurram protocol, METs 5.8 Maximum heart rate 130 Maximum blood pressure 207/73 Stress EKG, Minimal nondiagnostic changes Recovery EKG, Return to baseline TID: 0.99 SSS: 0 SDS: 0 EF: 81 Conclusion: 1. Fair exercise tolerance for a total of 4 minutes on standard Khurram protocol, 5.8 METS achieving 89% of maximal expected heart rate 2. Appropriate heart rate and blood pressure response to exercise return to baseline during recovery 3. Nondiagnostic EKG changes with exercise return to baseline during recovery 4. No ischemia or infarction noted on SPECT images 5. Normal left ventricular size, ejection fraction 81% Copy Copies To 1: [facility] [place] ISAIAH OCAMPO MD Apr 19, 2022 15:11
== END ==
LOC: CARD 12:15
PROVIDERS: ATTEND Physician Assistant
DX: I10 Essential (primary) hypertension (principal)
CPT/HCPCS: 78452; 93017; A9502